=== PATIENT | female | born 1950 | race Caucasian/White ===

== ENCOUNTER 2022-04-03 08:06 | Outpatient (CLI) | payer BC, SELFPAY ==
[2022-04-03 15:08] LABS: Albumin* 4.7 g/dL (3.3-5.0)
[2022-04-03 15:10] LABS: Bilirubin Direct* 0.2 mg/dL (0.0-0.5); Bilirubin Total* 1.2 mg/dL (0.1-1.5); Cholesterol* 199 mg/dL (90-199)
[2022-04-03 15:11] LABS: Alanine Aminotransferase* 22 U/L (4-35); Alkaline Phosphatase* 85 U/L (40-150); Aspartate Amino Transferase* 32 U/L (12-35); HDL Cholesterol* 93 mg/dL (>=50); LDL Cholesterol Calculated 95 mg/dL (<100); Triglycerides* 53 mg/dL (40-149)
== END 2022-04-03 08:07 | disposition home or self-care (01) ==
PROVIDERS: PCP Family Medicine; Visit Provider Dermatology
DX: Z79.899 Other long term (current) drug therapy (principal); E78.5 Hyperlipidemia, unspecified; E55.9 Vitamin D deficiency, unspecified; I10 Essential (primary) hypertension
CPT/HCPCS: 80061; 80076

== ENCOUNTER 2022-04-10 14:52 | Outpatient (CLI) | payer BC, SELFPAY | END 2022-04-10 14:53 | disposition home or self-care (01) | LOC: RAD 14:53 | PROVIDERS: PCP Family Medicine; Visit Provider Internal Medicine Cardiovascular Disease | DX: I35.0 Nonrheumatic aortic (valve) stenosis (principal) | CPT/HCPCS: 93306 ==

== ENCOUNTER 2022-04-29 07:28 | Outpatient (CLI) | payer BC, SELFPAY ==
[2022-04-29 09:53] LABS: Albumin* 4.2 g/dL (3.3-5.0); Chloride* 105 mmol/L (96-114); Potassium* 4.2 mmol/L (3.6-5.1); Sodium* 139 mmol/L (135-149)
[2022-04-29 09:55] LABS: Cholesterol* 170 mg/dL (90-199)
[2022-04-29 09:56] LABS: Alanine Aminotransferase* 22 U/L (4-35); Alkaline Phosphatase* 71 U/L (40-150); Aspartate Amino Transferase* 31 U/L (12-35); Bilirubin Total* 1.1 mg/dL (0.1-1.5); Blood Urea Nitrogen* 25 mg/dL (7-30); Carbon Dioxide* 28 mmol/L (20-32); Creatinine* 0.8 mg/dL (0.5-1.5); Estimated Glomerular Filt Rate 78 ml/min; Glucose* 89 mg/dL (60-115); Total Protein* 7.4 g/dL (6.0-8.3); Triglycerides* 58 mg/dL (40-149)
[2022-04-29 09:57] LABS: Calcium* 9.5 mg/dL (8.4-10.6); HDL Cholesterol* 90 mg/dL (>=50); LDL Cholesterol Calculated 68 mg/dL (<100)
[2022-04-29 10:09] LABS: Vitamin D 25 Hydroxy* 43 ng/mL (30-80)
== END 2022-04-29 07:29 | disposition home or self-care (01) ==
PROVIDERS: PCP Family Medicine; Visit Provider Family Medicine
DX: Z00.00 Encounter for general adult medical examination without abnormal findings (principal); E55.9 Vitamin D deficiency, unspecified; E78.5 Hyperlipidemia, unspecified; I10 Essential (primary) hypertension; M85.80 Other specified disorders of bone density and structure, unspecified site
CPT/HCPCS: 80053; 80061; 82306

== ENCOUNTER 2022-07-09 14:43 | Outpatient (CLI) | payer BC, SELFPAY ==
--- NOTE | 2022-07-09 15:00 | CRLHL7_ITS ---
For Patients: As a result of the Cures Act, medical imaging exams and procedure reports are released immediately into your electronic medical record. You may view this report before your referring provider. If you have questions, please contact your health care provider. BILATERAL SCREENING MAMMOGRAM WITH COMPUTER-AIDED DETECTION AND TOMOSYNTHESIS TECHNIQUE: CC and MLO views were obtained. These mammographic images have been obtained using full-field digital technique. These mammographic images were interpreted with the benefit of computer-aided detection. Breast Tomosynthesis was used in this interpretation. COMPARISON FILM: 05/02/21, 04/02/20, 03/16/19. FINDINGS: There are scattered areas of fibroglandular density IMPRESSION: There is no radiographic evidence for malignancy. ASSESSMENT: BI-RADS Category 1: Negative RECOMMENDATION: Routine screening mammogram in 1 year. A lay language report of this examination will be provided to the patient. Víctor Reina M.D. Diagnostic Radiologist [email or web address] WILLAM/[email or web address] Transcribed: 5:43 p.claude levine/Dictated by: Víctor Reina MD @ 07/10/2022 12:53:00 PM (Electronically Signed)
== END 2022-07-09 14:44 | disposition home or self-care (01) ==
LOC: MAMMO 14:43
PROVIDERS: PCP Family Medicine; Visit Provider Family Medicine
DX: Z12.31 Encounter for screening mammogram for malignant neoplasm of breast (principal)
CPT/HCPCS: 77063; 77067

== ENCOUNTER 2023-04-07 15:03 | Outpatient (CLI) | payer OTHER, SELFPAY | END 2023-04-07 15:04 | disposition home or self-care (01) | PROVIDERS: PCP Family Medicine; Visit Provider Family Medicine | DX: L93.0 Discoid lupus erythematosus (principal); M79.10 Myalgia, unspecified site | CPT/HCPCS: 80053; 82550; 86039; 86140; 86431; 86812 ==

== ENCOUNTER 2023-05-04 07:35 | Outpatient (CLI) | payer OTHER, SELFPAY ==
--- OUTSIDE RECORDS SUMMARY | 2023-05-06 10:18 | XMS_ITS ---
Author Name Unknown Organization [facility] Address [address] [place] [address] Care Team Providers Care Stamp Presser Name Role Phone Unavailable Unavailable Unavailable Surgery Details Not on file Complications Check Surgery Details section. Procedure Estimated Blood Loss Check Surgery Details section. Procedure Findings Check Surgery Details section. Procedure Specimens Taken Check Surgery Details section.
--- OUTSIDE RECORDS SUMMARY | 2023-05-06 10:18 | XMS_ITS | Referral Summary ---
Author Name Unknown Organization [facility] Address [address] [place] [address] Care Team Providers Care International Marketing Specialist Name Role Phone Elsewhere, Pcp Primary Care Provider Unavailabl e Source Comments Patient records contain information from all sites at [facility]. For routine questions regarding patient records, call [phone] during business hours, M-F 8:00 AM - 5:00 PM Central Time. Record requests for emergency care only can be directed to [phone] at any time.[facility] Encounters Date Type Department Care Team Description 04/21/2023 Orders Only Division of Rheumatology in [place], [place] [address] [place] [address] Iwona Bermudez M.B.BElaineS. Polymyalgia Rheumatica (HCC) (Primary Dx) from Last 3 Months Immunizations Name Administration Dates Next Due PPSV23(Discontinued) 05/02/2003 Social History Tobacco Use Types Packs/Day Years Used Date Smoking Tobacco: Every Day Nutrition Answer Date Recorded Nutrition: EVOO Fat Source Unknown 05/31 Nutrition: Servings of Fruits/Vegetables per Day Not on file 05/31/2020 Dental Answer Date Recorded Dental: Regular Dentist Unknown 06/01/19 21 Sex and Gender Information Value Date Recorded Sex Assigned at Not on file Gender Identity Not on file Sexual Orientation Not on file Last Filed Vital Signs Vital Sign Reading Time Taken Comments Blood Pressure 109/70 06/20/2016 9:00 AM CDT Vital sign result from Clinical Notes. Pulse 67 06/20/2016 9:00 AM CDT Vi cruz sign result from Clinical Notes. Temperature - - Respiratory Rate - - Oxygen Saturation - - Inhaled Oxygen Concentration - - Weight - - Height - - Body Mass Index - - Plan of Treatment Upcoming Encounters Date Type Department Care Team (Latest Contact Info) Description 07/06/2023 10:30 AM CDT Clinical Communication Virtual Review in [place], [place] 200 [place] [address] 07/07/2023 8:30 AM CDT Comprehensive Visit Division of Rheumatology in [place], [place] [address] [place] [phone] Arthur Castorena M.D., Ph.D. [address] [place] [phone] 07/07/2023 10:15 AM CDT Appointment Department of Radiology, [facility] in [address] [phone] Iwona Bermudez M.B.B.S. [address] [place] [phone] 07/07/2023 10:30 AM CDT Appointment Department of Radiology, [facility] in [place], [place] [address] [place] [phone] Iwona Bermudez M.B.B.S. [address] [place] [phone] 07/07/2023 11:20 AM CDT Appointment Department of Laboratory Medicine and Pathology, [facility] in [address] [phone] Iwona Bermudez M.B.B.S. [address] [place] [phone] 07/10/2023 11:00 AM CDT Office Visit Division of Rheumatology in [address] [phone] Arthur Castorena M.D., Ph.D. [address] [place] [phone] Care Teams International Marketing Specialist Relationship Specialty Start Date End Date Elsewhere, Pcp PCP - General 04/18/19
--- OUTSIDE RECORDS SUMMARY | 2023-05-06 10:18 | XMS_ITS | Clinical Summary ---
Author Name Unknown Organization [facility] Address [address] [place] [address] Care Team Providers Care Chip Person Name Role Phone Elsewhere, Pcp Primary Care Provider Unavailabl e Source Comments Patient records contain information from all sites at [facility]. For routine questions regarding patient records, call [phone] during business hours, M-F 8:00 AM - 5:00 PM Central Time. Record requests for emergency care only can be directed to [phone] at any time.[facility] Encounters Date Type Department Care Team Description 04/21/2023 Orders Only Division of Rheumatology in [place], [place] [address] [place] [address] Iwona Bermudez M.B.BElaineS. Polymyalgia Rheumatica (HCC) (Primary [...] AM CDT Clinical Communication Virtual Review in [place], [place] 200 [place] [address] 07/07/2023 8:30 AM CDT Comprehensive Visit Division of Rheumatology in [place], [place] [address] [place] [phone] Arthur Castorena M.D., Ph.D. [address] [place] [phone] 07/07/2023 10:15 AM CDT Appointment Department of Radiology, [facility] in [address] [phone] Iwona Bermudez M.B.B.S. [address] [place] [phone] 07/07/2023 10:30 AM CDT Appointment Department of Radiology, [facility] in [place], [place] [address] [place] [phone] Iwona Bermudez M.B.B.S. [address] [place] [phone] 07/07/2023 11:20 AM CDT Appointment Department of Laboratory Medicine and Pathology, [facility] in [address] [phone] Iwona Bermudez M.B.B.S. [address] [place] [phone] 07/10/2023 11:00 AM CDT Office Visit Division of Rheumatology in [address] [phone] Arthur Castorena M.D., Ph.D. [address] [place] [phone] Health Maintenance Due Date Last Done Comments Bone Density Scan (Osteoporo sis Screen) 1948 CT Colonography 1950 Cologuard 1950 Colonoscopy 1950 Colorectal Cancer Screening 1950 FIT 1950 Fasting Glucose for Diabetes Screening 1950 Hepatitis C Screening 1950 Mammogram 1950 Depression Screening (Annual PHQ-2) 03/30/2023 Fall Risk Screen (Annual) 03/30/2023 DTaP,Tdap,and Td Vaccines (3 - Td or Tdap) 03/15/2030 03/15/2020, 08/31/2009 Pneumococcal vaccine (65+ years) Completed 03/04/2017, 01/09/2015, 05/02/2003 Zoster Vaccines Completed 10/12/2019, 02/27, 03/10/2019, Additional history exists Influenza Vaccine Completed 12/29/2022, , 03/13/2021, Additional history exists COVID-19 Vaccine Completed 01/16/2023, 09/2021, 10/21/2021, Additional history exists Care Teams Chip Person Relationship Specialty Start Date End Date Elsewhere, Pcp PCP - General 04/18/19
--- OUTSIDE RECORDS SUMMARY | 2023-05-06 10:18 | XMS_ITS | Encounter Summary ---
Author Name Unknown Organization [facility] Address [address] [place] [address] Care Team Providers Care Manager Instrumentation Name Role Phone Elsewhere, Pcp Primary Care Provider Unavailabl e Reason for Referral * Outpatient (Routine) - Authorized Specialty Diagnoses / Procedures Referred By Contac t Referred To Contact Diagnoses Polymyalgia Rheumatica (HCC) Procedures DX Foot Bilateral 3+ Views Iwona Bermudez M.B.B.S. [address] [place] [address] [facility] Referral ID Status Reason Start Date Expiration Date V isits Requested Visits Authorized [id number] Authorized 04/21/2023 04/20/2024 1 1 NCIAL RETIREMENT PLAN SPECIALIST * Outpatient (Routine) - Authorized Specialty Diagnoses / Procedures Referred By Contac t Referred To Contact Diagnoses Polymyalgia Rheumatica (HCC) Procedures DX Hand Bilateral 3+ Views Iwona Bermudez M.B.B.S. [address] [place] [address] [facility] Referral ID Status Reason Start Date Expiration Date V isits Requested Visits Authorized [id number] Authorized 04/21/2023 04/20/2024 1 1 NCIAL RETIREMENT PLAN SPECIALIST * Outpatient (Routine) - Authorized Specialty Diagnoses / Procedures Referred By Contac t Referred To Contact Diagnoses Polymyalgia Rheumatica (HCC) Procedures DX Sacroiliac Joints 3+ Views Iwona Bermudez M.B.B.S. [address] [place] [phone] [facility] Referral ID Status Reason Start Date Expiration Date V isits Requested Visits Authorized [id number] Authorized 04/21/2023 04/20/2024 1 1 NCIAL RETIREMENT PLAN SPECIALIST Encounter Details Date Type Department Care Team (Late st Contact Info) Description 04/21/2023 Orders Only Division of Rheumatology in [place], [place] [address] [place] [phone] Iwona Bermudez M.B.B.S. [address] [place] [phone] Polymyalgia Rheumatica (HCC) (Primary Dx) Social History Tobacco Use Types Packs/Day Years [...] on file Sexual Orientation Not on file documented as of this encounter Plan of Treatment Upcoming Encounters Date Type Department Care Team (Latest Contact Info) Description 07/06/2023 10:30 AM CDT Clinical Communication Virtual Review in [place], [place] 200 [place] [address] 07/07/2023 8:30 AM CDT Comprehensive Visit Division of Rheumatology in [place], [place] [address] [place] [phone] Arthur Castorena M.D., Ph.D. [address] [place] [phone] 07/07/2023 10:15 AM CDT Appointment Department of Radiology, [facility], in [place], [place] [address] [place] [phone] Iwona Bermudez M.B.B.S. 200 [place] [address] 07/07/2023 10:30 AM CDT Appointment Department of Radiology, [facility], in [place], [place] [address] [place] [phone] Iwona Bermudez M.B.B.S. [address] [place] [phone] 07/07/2023 11:20 AM CDT Appointment Department of Laboratory Medicine and Pathology, [facility] in [place], [place] [address] [place] [phone] Iwona Bermudez M.B.B.S. [address] [place] [phone] 07/10/2023 11:00 AM CDT Office Visit Division of Rheumatology in [place], [place] [address] [place] [phone] Arthur Castorena M.D., Ph.D. [address] [place] [phone] Scheduled Orders Name Type Priority Associated Diagnoses Order Schedule CBC with Differential, Blood Lab Routine Polymyalgia Rheumatica (HCC) Expected: 04/21/2023 (Approximate), Expires: 04/21/2024 Sedimentation Rate Lab Routine Polymyalgia Rheumatica (HCC) Expected: 04/21/2023 (Approximate), Expires: 04/21/2024 CRP (C-Reactive Protein) Lab Routine Polymyalgia Rheumatica (HCC) Expected: 04/21/2023 (Approximate), Expires: 04/21/2024 Comprehensive Metabolic Panel Lab Routine Polymyalgia Rheumatica (HCC) Expected: 04/21/2023 (Approximate), Expires: 07/20/2024 DX Sacroiliac Joints 3+ Views Imaging RAD - Routine (most inpatients and all outpatients) Polymyalgia Rheumatica (HCC) Expected: 04/21/2023 (Approximate), Expires: 07/20/2024 Rheumatoid Factor Lab Routine Polymyalgia Rheumatica (HCC) Expected: 04/21/2023 (Approximate), Expires: 04/21/2024 Cyclic Citrullinated Peptide Antibodies, IgG Lab Routine Polymyalgia Rheumatica (HCC) Expected: 04/21/2023 (Approximate), Expires: 04/21/2024 Antinuclear Antibodies, HEp-2 Substrate, IgG, Serum Lab Routine Polymyalgia Rheumatica (HCC) Expected: 04/21/2023 (Approximate), Expires: 04/21/2024 DX Hand Bilateral 3+ Views Imaging RAD - Routine (most inpatients and all outpatients) Polymyalgia Rheumatica (HCC) Expected: 04/21/2023 (Approximate), Expires: 07/20/2024 DX Foot Bilateral 3+ Views Imaging RAD - Routine (most inpatients and all outpatients) Polymyalgia Rheumatica (HCC) Expected: 04/21/2023 (Approximate), Expires: 07/20/2024 documented as of this encounter Visit Diagnoses Diagnosis Polymyalgia Rheumatica (HCC)- Primary documented in this encounter Care Teams Manager Instrumentation Relationship Specialty Start Date End Date Elsewhere, Pcp PCP - General 04/18/19 documented as of this encounter
== END 2023-05-04 07:36 | disposition home or self-care (01) ==
LOC: NFLDREF 05-06 10:11
PROVIDERS: PCP Family Medicine; Referring Provider Family Medicine; Visit Provider Family Medicine
DX: I10 Essential (primary) hypertension (principal); E78.5 Hyperlipidemia, unspecified; L93.0 Discoid lupus erythematosus; M35.3 Polymyalgia rheumatica; E55.9 Vitamin D deficiency, unspecified
CPT/HCPCS: 80053; 80061; 82306; 86140

== ENCOUNTER 2023-05-28 14:42 | Outpatient (CLI) | payer OTHER, SELFPAY ==
--- NOTE | 2023-05-28 15:00 | XR_ITS ---
Patient: DIA MCCLAIN Facility:?[facility] Patient ID:?[id number] Site Patient ID:?[id number]. Site :?[id number] Study:?DEXA-Bone Density SPINE/BOTH HIPS-05/28/2023 3:08:51 PM Ordering Physician:TONY Final Report: DXA BONE MINERAL DENSITY STUDY Reason for exam: Osteopenia. Current height (in): 67.0. Weight (lb): 145.0. Menopause age: Not provided. Ethnicity: White. 1. Have you had a previous hip or vertebral fracture? No. 2. Have you had any fractures during your adult life which did not result from significant trauma (e.g., auto accident)? No. 3. Did either of your parents have a hip fracture? No. 4. Do you smoke? Yes. 5. Have you ever taken Glucocorticoids? No. 6. Do you have rheumatoid arthritis? No. 7. Do you have secondary osteoporosis? No. 8. Do you drink 3 or more alcoholic drinks per day? No. 9. Are you being treated for osteoporosis? No. 10. Have you ever taken any of the following medications: Actonel, Evista, Fosamax, Miacalcin, Reclast, Boniva, Forteo, HRT (i.e. estrogen/hormone therapy), Protelos, Prolia, Vitamin D, Calcium, other ? please specify. ANSWER: Yes, Fosamax, vitamin D. 11. Do you have any of the following medical conditions: Anorexia or bulimia, asthma or emphysema, end stage renal disease, hyperparathyroidism, any seizure disorders, cancer, inflammatory bowel diseases, hysterectomy, other ? please specify. ANSWER: No. 12. What was your maximum height (inches)? 67.5. 13. Do you perform weight bearing exercise regularly? No. 14. Do you regularly consume dairy products? Yes. 15. Do you drink caffeinated beverages? Yes. 16. At what age did your period start? 11. 17. Are you premenopausal? No. 18. How many full term pregnancies have you had? 5. 19. Have you ever missed your period for more than 6 months in a row (not including or menopause)? No. TECHNIQUE: Bone mineral density study was performed using the [facility]. FINDINGS: The results of the study expressed as bone mineral density (BMD) are as follows: Lumbar spine L1 to L4: BMD: 0.798 g/cm2. T-score: -2.3. Z-score: 0.1. Neck Left: BMD: 0.702 g/cm2. T-score: -1.3. Z-score: 0.7. Right: BMD: 0.674 g/cm2. T-score: -1.6. Z-score: 0.5. Total Left: BMD: 0.795 g/cm2. T-score: -1.2. Z-score: 0.6. Right: BMD: 0.793 g/cm2. T-score: -1.2. Z-score: 0.5. IMPRESSION: Osteopenia. *Comparison exams done prior to 08/2019 were performed on different unit, [employer]. COMPARISON: Compared with scan of 03/12/2017, the bone mineral density has decreased by 4.8 percent at the spine and decreased by 12.3 percent at the hip. Compared with scan of 01/15/2015, the bone mineral density has decreased by 6.8 percent at the spine and decreased by 3.9 percent at the hip. FRAX 10-year Fracture Risk Major Osteoporotic Fracture: 11 percent Hip Fracture: 3.5 percent Reported Risk Factors: [place] () Neck BMD=0.674, BMI=22.7, smoking Víctor Reina M.D. Diagnostic Radiologist [email or web address] DSM/bhe / be/Dictated by: Víctor Reina MD @ 05/29/2023 9:20:00 AM Signed by:?Víctor eRina MD @05/30/2023 10:15:01 AM (Electronic Signature)
--- NOTE | 2023-05-28 16:00 | CT_ITS ---
Patient: DIA MCCLAIN Facility:?[facility] Patient ID:?[id number] Site Patient ID:?[id number]. Site :?[id number] Study:?CT-Chest LOW DOSE W/O-05/28/2023 3:11:57 PM Ordering Physician:TONY Final Report: INDICATION: Lung cancer screening. Significant smoking history. TECHNIQUE: Low-dose volumetric helical scanning of the thorax was performed without IV contrast material. Coronal and sagittal reconstructions were obtained. COMPARISON: None. FINDINGS: A noncalcified 4 mm right upper lobe nodule is demonstrated on image 28 of series 3 as well as a noncalcified 2 mm left upper lobe nodule on image 40. Several tiny calcified granulomas are also noted. Centrilobular emphysema is noted. There is no significant airway abnormality. No pleural effusion is demonstrated. There is no mediastinal or hilar lymph adenopathy. The heart size is normal. Calcified coronary arterial plaque is demonstrated. Images of the upper abdomen are unremarkable. IMPRESSION: 1. Noncalcified 4 mm right upper lobe nodule and 2 mm left upper lobe nodule. Lung-RADS CATEGORY 2: BENIGN APPEARANCE OR BEHAVIOR: Continue annual screening with low-dose chest CT in 12 months. 2. Centrilobular emphysema. 3. Coronary artery disease. Please note that all CT scans at this facility use dose modulation, iterative reconstruction, and/or weight-based dosing when appropriate to reduce radiation dose to as low as reasonably achievable. Dictated by Juan José Gamino MD @ 05/29/2023 9:02:24 AM Signed by:?Juan José Gamino MD @05/29/2023 9:02:24 AM (Electronic Signature)
== END 2023-05-28 14:43 | disposition home or self-care (01) ==
LOC: RAD 14:43
PROVIDERS: PCP Family Medicine; Visit Provider Family Medicine
DX: Z12.2 Encounter for screening for malignant neoplasm of respiratory organs (principal); R91.1 Solitary pulmonary nodule; Z87.891 Personal history of nicotine dependence; Z72.0 Tobacco use; M85.80 Other specified disorders of bone density and structure, unspecified site; M85.88 Other specified disorders of bone density and structure, other site
CPT/HCPCS: 71271; 77080

== ENCOUNTER 2023-06-10 07:38 | Outpatient (CLI) | payer OTHER, SELFPAY | END 2023-06-10 07:39 | disposition home or self-care (01) | LOC: NFLDREF 06-22 07:05 | PROVIDERS: PCP Family Medicine; Referring Provider Family Medicine; Visit Provider Family Medicine | DX: M35.3 Polymyalgia rheumatica (principal) | CPT/HCPCS: 86140 ==

== ENCOUNTER 2023-07-21 14:42 | Outpatient (CLI) | payer OTHER, SELFPAY ==
--- OUTSIDE RECORDS SUMMARY | 2023-07-21 14:45 | XMS_ITS | Encounter Summary ---
Author Name Unknown Organization [facility] Address [address] [place] [id number] Care Team Providers Care Video Coordinator Name Role Phone Elsewhere, Pcp Primary Care Provider Unavailabl e Encounter Details Date Type Department Care Team (Latest Contact Info) Description 07/07/2023 11:06 AM CDT - 07/07/2023 11:59 PM CDT Hospital Encounter Department of Laboratory Medicine and Pathology, [facility] in [place], [place] [address] [place] [address] Iwona Bermudez M.B.B.S. [address] [place] [address] Polymyalgia Rheumatica (HCC); Myalgia Discharge Disposition: Home or Self Care Social History Tobacco Use Types Packs/Day Years Used Date Smoking Tobacco: Every Day [facility] Utilities Answer Date Recorded In the past 12 months has [facility] [employer], gas, oil, or water [employer] threatened to shut off services in your home? No 07/07/2023 Exercise Vital Sign Answer Date Recorde d On average, how many days pe r week do you engage in moderate to strenuous exercise (like a brisk walk)? 2 days Minutes of Exercise per Session Not on file 07/07/2023 Hunger Vital Sign Answer Date Recorded Within the past 12 months, y ou worried that your food would run out before you got the money to buy more. Never true 07/07/19 24 Within the past 12 months, t he food you bought just didn't last and you didn't have money to get more. Never true 07/07/2023 PRAPARE - Transportation Answer Date Re corded In the past 12 months, has l ack of transportation kept you from medical appointments or from getting medications? No 11/2023 In the past 12 months, has l ack of transportation kept you from meetings, work, or from getting things needed for daily living? No 07/07/2023 Nutrition Answer Date Recorded Nutrition: EVOO Fat Source Unknown 07/06 On average, how many serving s of fruits and vegetables do you eat per day (serving size is equal to 1 cup or approximately the size of a tennis ball)? 0-2 07/07/2023 Dental Answer Date Recorded Dental: Regular Dentist Yes 07/07/19 Employment Answer Date Recorded Employment status Employed and actively working without restrictions 07/07/2023 Housing Stability Answer Date Recorded What is your living situation today? I have a [facility] place to live 07/07/2023 Sex and Gender Information Value Date Recorded Sex Assigned at Female 07/07/2023 7:47 AM CDT Gender Identity Female 07/07/2023 7:47 AM CDT Sexual Orientation Straight 07/07/2023 7: 47 AM CDT documented as of this encounter Medications at Time of Discharge Medication Sig Dispensed Refills Start Date End Date alendronate (FOSAMAX) 70 mg tablet Take 1 tablet by mouth once a week. 06/20/2016 calcium carbonate-vitamin D3 (Calcium 600 with Vitamin D3) 600 mg-10 mcg (400 unit) tablet,chewable Chew 1 tablet daily. cholecalciferol, vitamin D3, (cholecalciferol) 25 mcg (1,000 Unit) tablet Take 50 mcg by mouth daily. hydroCHLOROthiazide (HYDRODIURIL) 25 mg tablet Take 1 tablet by mouth daily. 06/20/2016 hydroxychloroquine (PLAQUENIL) 200 mg tablet Take 200 mg by mouth Titrated. lisinopriL (PRINIVIL,ZESTRIL) 30 mg tablet Take 1 tablet by mouth daily. 01/02/2011 simvastatin (ZOCOR) 10 mg tablet Take 2 tablets by mouth at bedtime. 06/20/2016 predniSONE (DELTASONE) 10 mg tablet TAKE ONE TABLET BY MOUTH EVERY DAY ALONG WITH 1-5MG TABLET 06/12/2023 07/15/2023 predniSONE (DELTASONE) 5 mg tablet TAKE ONE TABLET BY MOUTH EVERY DAY ALONG WITH 1-10MG TABLET 06/12/2023 07/15/2023 documented as of this encounter Plan of Treatment Upcoming Encounters Date Type Department Care Team (Late st Contact Info) Description 08/27/2023 2:00 PM CDT Comprehensive Visit Department of Dermatology in [place], [place] [address] [place] [address] Digna Le M.D. [address] [place] [address] documented as of this encounter Procedures Procedure Name Priority Date/Time Associated Diagnosis Comments HIV-1/-2 AG AND AB SCREEN, PLASMA Routine 07/07/2023 11:22 AM CDT Myalgia ANTINUCLEAR AB, HEP-2, SUBSTRATE, S Routine 07/07/2023 11:22 AM CDT Polymyalgia Rheumatica (HCC) QUANTIFERON-TB GOLD PLUS, B Routine 07/07/2023 11:22 AM CDT Myalgia THYROID FUNCTION CASCADE, S Routine 07/07/2023 11:22 AM CDT Myalgia HEPATITIS BE AG AND AB Routine 11:22 AM CDT Myalgia AB TO EXTRACTABLE NUCLEAR AG EVAL, S Routine 07/07/2023 11:22 AM CDT Myalgia HCV AB W/REFLEX TO HCV PCR, S Routine 07/07/2023 11:22 AM CDT Myalgia CYCLIC CITRULLINATED PEPTIDE ABS, IGG, S Routine 07/07/2023 11:22 AM CDT Polymyalgia Rheumatica (HCC) ALDOLASE, S Routine 07/07/2023 11:22 AM CDT Myalgia HBC TOTAL AB, SERUM Routine 07/07/2023 1 1:22 AM CDT Myalgia HBS ANTIBODY, SERUM Routine 07/07/2023 1 1:22 AM CDT Myalgia HEPATITIS B SURFACE ANTIGEN Routine 07/07/2023 11:22 AM CDT Myalgia SEDIMENTATION RATE, B Routine 07/07/2023 11:22 AM CDT Polymyalgia Rheumatica (HCC) CBC WITH DIFFERENTIAL, B Routine 07/07/2023 11:22 AM CDT Polymyalgia Rheumatica (HCC) RHEUMATOID FACTOR, S/P Routine 11:22 AM CDT Polymyalgia Rheumatica (HCC) COMPL C3, S Routine 07/07/2023 11:22 AM CDT Myalgia COMPLEMENT C4, S Routine 07/07/2023 11:2 2 AM CDT Myalgia C-REACTIVE PROTEIN (CRP), S/P Routine 07/07/2023 11:22 AM CDT Polymyalgia Rheumatica (HCC) LACTATE DEHYDROGENASE (LD), S Routine 07/07/2023 11:22 AM CDT Myalgia CREATINE KINASE (CK), S Routine 07/07/2023 11:22 AM CDT Myalgia COMPREHENSIVE METABOLIC PANEL, S/P Routine 07/07/2023 11:22 AM CDT Polymyalgia Rheumatica (HCC) documented in this encounter Results * QuantiFERON-Tb Gold Plus, Blood (07/07/2023 11:22 AM CDT) [facility] QuantiFERON-TB Gold Plus Result Negative Negative 07/08/2023 11:19 AM CDT [facility] Comment: No interferon-gamma response to M. tuberculosis antigens was detected. Latent infection with M. tuberculosis is unlikely. A single negative result does not exclude infection with M. tuberculosis. In patients at high risk for M.tuberculosis infection, a second test should be considered in accordance with the 2017 ATS/IDSA/CDC Clinical Practice Guidelines for Diagnosis of Tuberculosis in Adults and Children [Lewinsohn DM et. al. Clin. Infect. Dis. 2017;64(2):111-115]. The reference range for the 'TB1 Ag minus Nil Result' and 'TB2 Ag minus Nil Result' is an Interferon-gamma level <0.35 IU/mL. TB1 Ag minus Nil Result 0.00 IU/mL 07/08/2023 11:19 AM CDT [facility] TB2 Ag minus Nil Result 0.00 IU/mL 07/08/2023 11:19 AM CDT [facility] Mitogen minus Nil Result 10.00 IU/mL 07/08/2023 11:19 AM CDT [facility] Nil Result 0.00 IU/mL 07/08/2023 11:19 AM CDT [facility] Blood (Blood, Venous) 07/07/2023 11:22 AM CDT 07/07/2023 2:00 PM CDT Narrative [facility] - 07/08/2023 11:19 AM CDT Specimen Information: Specimen ID: [id number] Specimen Type: Blood Specimen Collection Start Date: 07/07/2023 11:22 AM Specimen Received Date: 07/07/2023 ??2:00 PM Specimen ID: [id number] Specimen Type: Blood Specimen Collection Start Date: 07/07/2023 11:22 AM Specimen Received Date: 07/07/2023 ??2:00 PM Specimen ID: [id number] Specimen Type: Blood Specimen Collection Start Date: 07/07/2023 11:22 AM Specimen Received Date: 07/07/2023 ??2:00 PM Specimen ID: [id number] Specimen Type: Blood Specimen Collection Start Date: 07/07/2023 11:22 AM Specimen Received Date: 07/07/2023 ??2:00 PM Arthur Castorena M.D., Ph.D. LAB MICROBIOLOG Y - BLOOD ORDERABLES Performing Organization Address [facility] Co de Phone Number [facility] [address] [place] [address] [facility] [address] [place] [address] * HCV Ab w/Reflex to HCV PCR, Serum (07/07/2023 11:22 AM CDT) HCV Ab, S Negative Negative 07/07/2023 9:20 PM CDT [facility] Comment:Ereaqj-lj-uiwasj rat io is <1.00. Blood (Blood, Venous) 07/07/2023 11:22 AM CDT 07/07/2023 5:00 PM CDT Arthur Castorena M.D., Ph.D. LAB MICROBIOLOG Y - BLOOD ORDERABLES Performing Organization Address [facility] Co de Phone Number [facility] [address] [place] [address] [facility] [address] [place] [address] * HBc Total Ab, Serum (07/07/2023 11:22 AM CDT) HBc Total Ab, S Negative Negative 07/07/2023 9:25 PM CDT [facility] Blood (Blood, Venous) 07/07/2023 11:22 AM CDT 07/07/2023 5:00 PM CDT Arthur Castorena M.D., Ph.D. LAB MICROBIOLOG Y - BLOOD ORDERABLES Performing Organization Address City/[facility]/ZIP Co de Phone Number [facility] [address] [place] [address] [facility] [address] [place] [address] * Hepatitis B Surface Antigen (07/07/2023 11:22 AM CDT) HBs Antigen, S Negative Negative 07/07/2023 9:02 PM CDT [facility] Blood (Blood, Venous) 07/07/2023 11:22 AM CDT 07/07/2023 5:00 PM CDT Arthur Castorena M.D., Ph.D. LAB MICROBIOLOG Y - BLOOD ORDERABLES Performing Organization Address [facility] Co de Phone Number [facility] [address] [place] [address] [facility] [address] [place] [address] * Hepatitis Be Ag and Ab (07/07/2023 11:22 AM CDT) Hepatitis Be Ag, S Negative Negative 07/07/2023 9:07 PM CDT [facility] HBe Antibody, S Negative Negative 07/07/2023 9:23 PM CDT [facility] Blood (Blood, Venous) 07/07/2023 11:22 AM CDT 07/07/2023 5:00 PM CDT Arthur Castorena M.D., Ph.D. LAB MICROBIOLOG Y - BLOOD ORDERABLES Performing Organization Address [facility] Co de Phone Number [facility] [address] [place] [address] [place] [address] * HBs Antibody, Serum (07/07/2023 11:22 AM CDT) HBs Antibody, S Negative 07/07/2023 9:24 PM CDT [facility] Comment: Patient is presumed to be not immune to infection with HBV. ----REFERENCE VALUE---- Unvaccinated: Negative Vaccinated: Positive HBs Antibody, Quantitative, S <5.0 mIU/mL 07/07/2023 9:24 PM CDT [facility] Comment: ----REFERENCE VALUE---- Unvaccinated: <5.0 Vaccinated: >=12.0 Blood (Blood, Venous) 07/07/2023 11:22 AM CDT 07/07/2023 5:00 PM CDT Arthur Castorena M.D., Ph.D. LAB MICROBIOLOG Y - BLOOD ORDERABLES Performing Organization Address City/[facility]/ZIP Co de Phone Number [facility] [address] [place] [address] [facility] [address] [place] [address] * HIV-1/-2 Ag and Ab Screen, Plasma (07/07/2023 11:22 AM CDT) Pathologist [facility] HIV-1/-2 Ag and Ab Screen, P Negative Negative 07/07/2023 4:24 PM CDT [facility] Comment: Negative result does not rule out HIV infection. If exposure to HIV infection occurred <14 days ago, contact the laboratory to request addition of HIV-1/HIV-2 RNA detection, Plasma (HIP12). Blood (Blood, Venous) 07/07/2023 11:22 AM CDT 07/07/2023 3:33 PM CDT Arthur Castorena M.D., Ph.D. LAB MICROBIOLOG Y - BLOOD ORDERABLES Performing Organization Address [facility] Co de Phone Number [facility] [address] [place] [address] [facility] [address] [place] [address] * LD (Lactate Dehydrogenase) (07/07/2023 11:22 AM CDT) Pathologist [facility] Lactate Dehydrogenase (LD), S 215 122 - 222 U/L 07/07/2023 12:20 PM CDT DTL Blood (Blood, Venous) 07/07/2023 11:22 AM CDT 07/07/2023 11:53 AM CDT Arthur Castorena M.D., Ph.D. LAB BLOOD NON A DD-ON Performing Organization Address City/[facility] Co de Phone Number [facility] [address] [place] [address], [place] DTL [facility] [address] [place] [address] * Antibody to Extractable Nuclear Antigen Evaluation (07/07/2023 11:22 AM CDT) SS-A/Ro Ab, IgG, S 0.2 <1.0 (Negative) U 07/07/2023 5:10 PM CDT [facility] SS-B/La Ab, IgG, S <0.2 <1.0 (Negative) U 07/07/2023 5:10 PM CDT [facility] Sm Ab, IgG, S <0.2 <1.0 (Negative) U 07/07/2023 5:10 PM CDT [facility] DRUPAL DEVELOPER Ab, IgG, S 0.5 <1.0 (Negative) U 07/07/2023 5:10 PM CDT [facility] Scl 70 Ab, IgG, S <0.2 <1.0 (Negative) U 07/07/2023 5:10 PM CDT [facility] Karishma 1 Ab, IgG, S <0.2 <1.0 (Negative) U 07/07/2023 5:10 PM CDT [facility] Blood (Blood, Venous) 07/07/2023 11:22 AM CDT 07/07/2023 4:06 PM CDT Arthur Castorena M.D., Ph.D. LAB BLOOD ADD-O N [facility] [address] [address] [facility] [address] [place] [address] * Complement C4 (07/07/2023 11:22 AM CDT) Complement C4, S 25 14 - 40 mg/dL 07/07/2023 4:29 PM CDT [facility] Blood (Blood, Venous) 07/07/2023 11:22 AM CDT 07/07/2023 3:29 PM CDT Arthur Castorena M.D., Ph.D. LAB BLOOD ADD-O N [facility] [address] [address] [facility] [address] [place] [address] * Complement C3 (07/07/2023 11:22 AM CDT) Complement C3, S 112 75 - 175 mg/dL 07/07/2023 4:29 PM CDT [facility] Blood (Blood, Venous) 07/07/2023 11:22 AM CDT 07/07/2023 3:29 PM CDT Arthur Castorena M.D., Ph.D. LAB BLOOD ADD-O N [facility] [address] [place] [address] [facility] [address] [place] [address] * Thyroid Function [place] (07/07/2023 11:22 AM CDT) TSH, Sensitive 1.7 0.3 - 4.2 mIU/L 07/07/2023 12:20 PM CDT DT Blood (Blood, Venous) 07/07/2023 11:22 AM CDT 07/07/2023 11:53 AM CDT Arthur Castorena M.D., Ph.D. LAB BLOOD ADD-O N Performing Organization Address City/[facility]/ZIP Co de Phone Number [facility] [address] [place] [address], [facility] [address] [place] [address] * Aldolase (07/07/2023 11:22 AM CDT) Aldolase, S 5.5 <7.7 U/L 07/07/2023 2: 09 PM CDT DT Blood (Blood, Venous) 07/07/2023 11:22 AM CDT 07/07/2023 1:30 PM CDT Arthur Castorena M.D., Ph.D. LAB BLOOD NON A DD-ON Performing Organization Address City/[facility]/ZIP Co de Phone Number [facility] [address] [place] [address] * CK (Creatine Kinase) (07/07/2023 11:22 AM CDT) Creatine Kinase (CK), S 48 26 - 192 U/L 07/07/2023 12:20 PM CDT [facility] Blood (Blood, Venous) 07/07/2023 11:22 AM CDT 07/07/2023 11:53 AM CDT Arthur Castorena M.D., Ph.D. LAB BLOOD ADD-O N Performing Organization Address [facility] Co de Phone Number [facility] [address] [place] [address] * (ABNORMAL) Antinuclear Antibodies, HEp-2 Substrate, IgG, Serum (07/07/2023 11:22 AM CDT) Antinuclear Ab, HEp-2 Substrate, S Positive 1:160(A) <1:80 (Negativ e) 07/07/2023 8:57 PM CDT [facility] Comment: ----ADDITIONAL INFORMATION---- Method: Immunofluorescence using HEp-2 cellular substrate. MALLIKA Titer: 1:160 07/07/2023 8:57 PM CDT [facility] MALLIKA Pattern: Speckled 07/07/2023 8:57 PM CDT [facility] Blood (Blood, Venous) 07/07/2023 11:22 AM CDT 07/07/2023 3:42 PM CDT Iwona Moeller. LAB BLOOD ADD-ON Performing Organization Address City/[facility]/ZIP Co de Phone Number [facility] [address] [place] [address] [facility] [address] [place] [address] * Cyclic Citrullinated Peptide Antibodies, IgG (07/07/2023 11:22 AM CDT) [facility] Cyclic Citrullinated Peptide Ab, S <15.6 <20.0 (Negative) U 07/07/2023 6:37 PM CDT [facility] Blood (Blood, Venous) 07/07/2023 11:22 AM CDT 07/07/2023 3:37 PM CDT Iwona CowanSElaine LAB BLOOD ADD-ON Performing Organization Address City/[facility]/ZIP Co de Phone Number [facility] [address] [place] [address] [facility] [address] [place] [address] * Rheumatoid Factor (07/07/2023 11:22 AM CDT) [facility] Rheumatoid Factor, S <15 <15 IU/mL 07/08/2023 10:38 AM CDT [facility] Blood (Blood, Venous) 07/07/2023 11:22 AM CDT 07/08/2023 9:20 AM CDT Iwona CowanSElaine LAB BLOOD ADD-ON [facility] [address] [place] [address] [facility] [address] [place] [address] * (ABNORMAL) Comprehensive Metabolic Panel (07/07/2023 11:22 AM CDT) [facility] Potassium, S 3.7 3.6 - 5.2 mmol/L 07/07/2023 12:20 PM CDT DTL Sodium, S 143 135 - 145 mmol/L 07/07/2023 12:20 PM CDT DTL Chloride, S 103 98 - 107 mmol/L 07/07/2023 12:20 PM CDT DTL Bicarbonate, S 30(H) 22 - 29 mmol/L 07/07/2023 12:20 PM CDT DTL Anion Gap 10 7 - 15 07/07/2023 12:20 PM CDT DTL BUN (Blood Urea Nitrogen), S 17 6 - 21 mg/dL 07/07/2023 12:20 PM CDT DTL Creatinine 0.89 0.59 - 1.04 mg/dL 07/07/2023 12:20 PM CDT DTL Estimated GFR (eGFR) 68 >=60 mL/min/BS A 07/07/2023 12:20 PM CDT DTL Comment: Estimated GFR calculated using the 2020 CKD_EPI creatinine equation. Calcium, Total, S 10.2 8.8 - 10.2 mg/dL 07/07/2023 12:20 PM CDT DTL Glucose, S 100 70 - 140 mg/dL 07/07/2023 12:20 PM CDT DTL Protein, Total, S 6.6 6.3 - 7.9 g/dL 07/07/2023 12:20 PM CDT DTL Albumin, S 4.5 3.5 - 5.0 g/dL 07/07/2023 12:20 PM CDT DTL Aspartate Aminotransferase (AST), S 23 8 - 43 U/L 07/07/2023 12:20 PM CDT DTL Alkaline Phosphatase, S 55 35 - 104 U/L 07/07/2023 12:20 PM CDT DTL Alanine Aminotransferase (ALT), S 25 7 - 45 U/L 07/07/2023 12:20 PM CDT DTL Bilirubin, Total, S 1.1 0.0 - 1.2 mg/dL 07/07/2023 12:20 PM CDT DTL Blood (Blood, Venous) 07/07/2023 11:22 AM CDT 07/07/2023 11:53 AM CDT Iwona Garza LAB BLOOD ADD-ON [facility] [address] [place] [address], [facility] [address] [place] [address] * CRP (C-Reactive Protein) (07/07/2023 11:22 AM CDT) Pathologist [facility] C-Reactive Protein (CRP), S <3.0 <5.0 mg/L 07/07/2023 12:20 PM CDT DTL Blood (Blood, Venous) 07/07/2023 11:22 AM CDT 07/07/2023 11:53 AM CDT Iwona Chang.S. LAB BLOOD ADD-ON Performing Organization Address City/[facility]/ZIP Co de Phone Number [facility] [address] [place] [address] * Sedimentation Rate (07/07/2023 11:22 AM CDT) [facility] Sedimentation Rate, B 9 3 - 28 mm/h 07/07/2023 1:01 PM CDT DTL Blood (Blood, Venous) 07/07/2023 11:22 AM CDT 07/07/2023 11:50 AM CDT Iwona DavidsonB.S. LAB BLOOD ADD-ON Performing Organization Address [facility] Co de Phone Number [facility] [address] [place] [address], [place] [address] * (ABNORMAL) CBC with Differential, Blood (07/07/2023 11:22 AM CDT) [facility] Hemoglobin 15.7(H) 11.6 - 15.0 g/dL 07/07/2023 12:15 PM CDT DTL Hematocrit 47.0(H) 35.5 - 44.9 % 07/07/2023 12:15 PM CDT DTL Erythrocytes 4.95 3.92 - 5.13 x10(12)/L 07/07/2023 12:15 PM CDT DTL MCV 94.9 78.2 - 97.9 fL 07/07/2023 12:15 PM CDT DTL RBC Distrib Width 16.5(H) 12.2 - 16.1 % 07/07/2023 12:15 PM CDT DTL Platelet Count 211 157 - 371 x10(9)/L 07/07/2023 12:15 PM CDT DTL Leukocytes 11.8(H) 3.4 - 9.6 x10(9)/L 07/07/2023 12:15 PM CDT DTL Neutrophils 8.21(H) 1.56 - 6.45 x10(9)/L 07/07/2023 12:15 PM CDT [facility] Lymphocytes 2.68 0.95 - 3.07 x10(9)/L 07/07/2023 12:15 PM CDT DTL Monocytes 0.80 0.26 - 0.81 x10(9)/L 07/07/2023 12:15 PM CDT DTL Eosinophils 0.03 0.03 - 0.48 x10(9)/L 07/07/2023 12:15 PM CDT DTL Basophils 0.03 0.01 - 0.08 x10(9)/L 07/07/2023 12:15 PM CDT DTL Blood (Blood, Venous) 07/07/2023 11:22 AM CDT 07/07/2023 11:50 AM CDT Iwona Garza LAB BLOOD ADD-ON [facility] [address] [place] [address], [facility] DTL [facility] [address] [place] [address] DHPM [facility] [address] [place] [address] documented in this encounter Visit Diagnoses Diagnosis Polymyalgia Rheumatica (HCC) Myalgia documented in this encounter Care Teams Video Coordinator Relationship Specialty Start Date End Date Elsewhere, Pcp PCP - General 04/18/19 documented as of this encounter
--- OUTSIDE RECORDS SUMMARY | 2023-07-21 14:45 | XMS_ITS | Clinical Summary ---
Author Name Unknown Organization [facility] Address [address] [place] [address] Care Team Providers Care Computer Equipment Installer Name Role Phone Elsewhere, Pcp Primary Care Provider Unavailabl e Source Comments Patient records contain information from all sites at [facility]. For routine questions regarding patient records, call [phone] during business hours, M-F 8:00 AM - 5:00 PM Central Time. Record requests for emergency care only can be directed to [phone] at any time.[facility] Medications Medication Sig Dispensed Refills Start Date End Date Status alendronate (FOSAMAX) 70 mg tablet Take 1 tablet by mouth once a week. 06/20/2016 Active hydroCHLOROthiazi de (HYDRODIURIL) 25 mg tablet Take 1 tablet by mouth daily. 06/20/2016 Active lisinopriL (PRINIVIL,ZESTRIL ) 30 mg tablet Take 1 tablet by mouth daily. 01/02/2011 Active simvastatin (ZOCOR) 10 mg tablet Take 2 tablets by mouth at bedtime. 06/20/2016 Active calcium carbonate-vitamin D3 (Calcium 600 with Vitamin D3) 600 mg-10 mcg (400 unit) tablet,chewable Chew 1 tablet daily. Active cholecalciferol, vitamin D3, (cholecalciferol) 25 mcg (1,000 Unit) tablet Take 50 mcg by mouth daily. Active hydroxychloroquin e (PLAQUENIL) 200 mg tablet Take 200 mg by mouth Titrated. Active predniSONE (DELTASONE) 5 mg tabletIndications :Polymyalgia Rheumatica (HCC) Take 2.5 tablets (12.5 mg total) by mouth daily for 14 days, THEN 2 tablets (10 mg total) daily for 14 days. 63 tablet 07/15/2023 08/12/2023 Active predniSONE (DELTASONE) 1 mg tabletIndications :Polymyalgia Rheumatica (HCC) Take 9 tablets (9 mg total) by mouth daily for 21 days, THEN 8 tablets (8 mg total) daily for 21 days, THEN 7 tablets (7 mg total) daily for 21 days, THEN 6 tablets (6 mg total) daily for 21 days, THEN 5 tablets (5 mg total) daily for 21 days, THEN 4 tablets (4 mg total) daily for 21 days, THEN 3 tablets (3 mg total) daily for 21 days, THEN 2 tablets (2 mg total) daily for 21 days, THEN 1 tablet (1 mg total) daily for 21 days. 945 tablet 07/15/2023 01/20/2024 Active predniSONE (DELTASONE) 10 mg tablet TAKE ONE TABLET BY MOUTH EVERY DAY ALONG WITH 1-5MG TABLET 06/12/2023 07/15/2023 Discontinued predniSONE (DELTASONE) 5 mg tablet TAKE ONE TABLET BY MOUTH EVERY DAY ALONG WITH 1-10MG TABLET 06/12/2023 07/15/2023 Discontinued Active Problems No known active problems Encounters Date Type Department Care Team Description 07/15/2023 Orders Only Division of Rheumatology in [place], [place] [address] [place] [address] Arthur Castorena M.D., Ph.D. Polymyalgia Rheumatica (HCC) (Primary Dx) 07/15/2023 Clinical Communication Division of Rheumatology in [place], [place] [address] [place] [address] Arthur Castorena M.D., Ph.D. Med Question 07/10/2023 11:00 AM CDT Office Visit Division of Rheumatology in [place], [place] [address] [place] [address] Arthur Castorena M.D., Ph.D. Polymyalgia Rheumatica (HCC) (Primary Dx); Lupus Discoid Erythematosus; Rash; High Risk Medication; Myalgia 07/07/2023 11:06 AM CDT - 07/07/2023 11:59 PM CDT Hospital Encounter Department of Laboratory Medicine and Pathology, [facility] in [place], [place] [address] [place] [address] Iwona Bermudez M.B.B.S. Polymyalgia Rheumatica (HCC); Myalgia Discharge Disposition: Home or Self Care 07/07/2023 9:58 AM CDT - 07/07/2023 11:05 AM CDT Hospital Encounter Department of Radiology, [facility], in [place], [place] [address] [place] [phone] Iwona Bermudez M.B.B.S. Polymyalgia Rheumatica (HCC) Discharge Disposition: Home or Self Care 07/07/2023 9:58 AM CDT - 07/07/2023 11:05 AM CDT Hospital Encounter Department of Radiology, [facility], in [place], [place] [address] [place] [phone] Iwona Bermudez M.B.B.S. Polymyalgia Rheumatica (HCC) Discharge Disposition: Home or Self Care 07/07/2023 8:30 AM CDT Comprehensive Visit Division of Rheumatology in [place], [place] [address] [place] [phone] Arthur Castorena M.D., Ph.D. Myalgia (Primary Dx); Lupus Discoid Erythematosus; Rash; High Risk Medication 04/21/2023 Orders Only Division of Rheumatology in [place], [place] [address] [place] [phone] Iwona Bermudez M.B.B.S. Polymyalgia Rheumatica (HCC) (Primary Dx) from Last 3 Months Immunizations Name Administration Dates Next Due PPSV23(Discontinued) 05/02/2003 Social History Tobacco Use Types Packs/Day Years Used Date Smoking Tobacco: Every Day [facility] Utilities Answer Date Recorded In the past 12 months has [employer], gas, oil, or water [employer] threatened to shut off services in your [...] your living situation today? [facility] 07/07/2023 Sex and Gender Information Value Date Recorded Sex Assigned at Female 07/07/2023 7:47 AM CDT Gender Identity Female 07/07/2023 7:47 AM CDT Sexual Orientation Straight 07/07/2023 7: 47 AM CDT Last Filed Vital Signs Vital Sign Reading Time Taken Comments Blood Pressure 150/77 07/07/2023 8:29 AM CDT Pulse 59 07/07/2023 8:29 AM CDT Temperature 36.3 ??C (97.3 ??F) 07/07/2023 8:29 AM CD T Respiratory Rate - - Oxygen Saturation - - Inhaled Oxygen Concentration - - Weight 69.5 kg (153 lb 3.5 oz) 07/07/2023 8:29 A M CDT Height 168.5 cm (5' 6.34) 07/07/2023 8:29 AM CD T Body Mass Index 24.48 07/07/2023 8:29 AM CDT Plan of Treatment Upcoming Encounters Date Type Department Care Team (Late st Contact Info) Description 08/27/2023 2:00 PM CDT Comprehensive Visit Department of Dermatology in [place], [place] [address] [place] [address] Digna Le M.D. [address] [place] [address] Health Maintenance Due Date Last Done Comments Bone Density Scan (Osteoporo sis Screen) 1948 CT Colonography 1948 Cologuard 1948 Colonoscopy 1948 Colorectal Cancer Screening 1948 FIT 1948 Mammogram 1948 Tobacco Cessation counseling 1948 COVID-19 Vaccine (2022- 4 season) 2023 01/16/2023, 02/03/2022, 10/21/2021, Additional history exists Depression Screening (Annual PHQ-2) 03/30/2023 Fall Risk Screen (Annual) 03/30/2023 Creatinine Level (Kidney Fun ction Test) 07/06/2024 07/07/2023 Potassium Level 07/06/2024 07/07/2023 Sodium Level 07/06/2024 07/07/2023 Fasting Glucose for Diabetes Screening 07/06/2026 07/07/2023 DTaP,Tdap,and Td Vaccines (3 - Td or Tdap) 03/15/2030 03/15/2020, 08/31/2009 Pneumococcal vaccine (65+ years) Completed 03/04/2017, 01/09/2015, 05/02/2003 Zoster Vaccines Completed 10/12/2019, 02/27, 03/10/2019, Additional history exists Influenza Vaccine Completed 12/29/2022, , 03/13/2021, Additional history exists Procedures Procedure Name Priority Date/Time Associated Diagnosis Comments LACTATE DEHYDROGENASE (LD), S Routine 07/07/2023 11:22 AM CDT Myalgia AB TO EXTRACTABLE NUCLEAR AG EVAL, S Routine 07/07/2023 11:22 AM CDT Myalgia COMPLEMENT C4, S Routine 07/07/2023 11:2 2 AM CDT Myalgia COMPL C3, S Routine 07/07/2023 11:22 AM CDT Myalgia THYROID FUNCTION CASCADE, S Routine 07/07/2023 11:22 AM CDT Myalgia ALDOLASE, S Routine 07/07/2023 11:22 AM CDT Myalgia CREATINE KINASE (CK), S Routine 07/07/2023 11:22 AM CDT Myalgia ANTINUCLEAR AB, HEP-2, SUBSTRATE, S Routine 07/07/2023 11:22 AM CDT Polymyalgia Rheumatica (HCC) CYCLIC CITRULLINATED PEPTIDE ABS, IGG, S Routine 07/07/2023 11:22 AM CDT Polymyalgia Rheumatica (HCC) RHEUMATOID FACTOR, S/P Routine 07/07/2023 11:22 AM CDT Polymyalgia Rheumatica (HCC) COMPREHENSIVE METABOLIC PANEL, S/P Routine 07/07/2023 11:22 AM CDT Polymyalgia Rheumatica (HCC) C-REACTIVE PROTEIN (CRP), S/P Routine 07/07/2023 11:22 AM CDT Polymyalgia Rheumatica (HCC) SEDIMENTATION RATE, B Routine 07/07/2023 11:22 AM CDT Polymyalgia Rheumatica (HCC) CBC WITH DIFFERENTIAL, B Routine 07/07/2023 11:22 AM CDT Polymyalgia Rheumatica (HCC) QUANTIFERON-TB GOLD PLUS, B Routine 07/07/2023 11:22 AM CDT Myalgia HCV AB W/REFLEX TO HCV PCR, S Routine 07/07/2023 11:22 AM CDT Myalgia HBC TOTAL AB, SERUM Routine 07/07/2023 1 1:22 AM CDT Myalgia HEPATITIS B SURFACE ANTIGEN Routine 07/07/2023 11:22 AM CDT Myalgia HEPATITIS BE AG AND AB Routine 07/07/2023 11:22 AM CDT Myalgia HBS ANTIBODY, SERUM Routine 07/07/2023 1 1:22 AM CDT Myalgia HIV-1/-2 AG AND AB SCREEN, PLASMA Routine 07/07/2023 11:22 AM CDT Myalgia DX HAND BILATERAL 3+ VIEWS RAD - Routine (most inpatients and all outpatients) 07/07/2023 10:29 AM CDT Polymyalgia Rheumatica (HCC) DX FOOT BILATERAL 3+ VIEWS RAD - Routine (most inpatients and all outpatients) 07/07/2023 10:27 AM CDT Polymyalgia Rheumatica (HCC) DX SACROILIAC JOINTS 3+ VIEWS RAD - Routine (most inpatients and all outpatients) 07/07/2023 10:27 AM CDT Polymyalgia Rheumatica (HCC) from Last 3 Months Results * HIV-1/-2 Ag and Ab Screen, Plasma (07/07/2023 11:22 AM CDT) HIV-1/-2 Ag and Ab Screen, P Negative Negative 07/07/2023 4:24 PM CDT [facility] Comment: Negative result does not rule out HIV infection. If exposure to HIV infection occurred <14 days ago, contact the laboratory to request addition of HIV-1/HIV-2 RNA detection, Plasma (HIP12). Blood (Blood, Venous) 07/07/2023 11:22 AM CDT 07/07/2023 3:33 PM CDT Arthur Castorena M.D., Ph.D. LAB MICROBIOLOG Y - BLOOD ORDERABLES [facility] [address] [place] [id number] [facility] [address] [place] [address] * (ABNORMAL) Antinuclear Antibodies, HEp-2 Substrate, IgG, Serum (07/07/2023 11:22 AM CDT) Pathologist [facility] Antinuclear Ab, HEp-2 Substrate, S Positive 1:160(A) <1:80 (Negativ e) 07/07/2023 8:57 PM CDT [facility] Comment: ----ADDITIONAL INFORMATION---- Method: Immunofluorescence using HEp-2 cellular substrate. MALLIKA Titer: 1:160 07/07/2023 8:57 PM CDT [facility] MALLIKA Pattern: Speckled 07/07/2023 8:57 PM CDT [facility] Blood (Blood, Venous) 07/07/2023 11:22 AM CDT 07/07/2023 3:42 PM CDT Iwona Garza LAB BLOOD ADD-ON Performing Organization Address [facility] de Phone Number [facility] [address] [place] [id number] [facility] [address] [place] [address] * QuantiFERON-Tb Gold Plus, Blood (07/07/2023 11:22 AM CDT) [facility] QuantiFERON-TB Gold Plus Result Negative Negative 07/08/2023 11:19 AM CDT [facility] Comment: No interferon-gamma response to M. tuberculosis [...] Result 0.00 IU/mL 07/08/2023 11:19 AM CDT [facility] Blood (Blood, Venous) 07/07/2023 11:22 AM CDT 07/07/2023 2:00 PM CDT Narrative [facility] - 07/08/2023 11:19 AM CDT Specimen Information: Specimen ID: [id number] Specimen Type: Blood Specimen Collection Start Date: 07/07/2023 11:22 AM Specimen Received Date: 07/07/2023 ??2:00 PM Specimen ID: [id number] Specimen Type: Blood Specimen Collection Start Date: 07/07/2023 11:22 AM Specimen Received Date: 07/07/2023 ??2:00 PM Specimen ID: [id number] Specimen Type: Blood Specimen Collection Start Date: 07/07/2023 11:22 AM Specimen Received Date: 07/07/2023 ??2:00 PM Specimen ID: [id number] Specimen Type: Blood Specimen Collection Start Date: 07/07/2023 11:22 AM Specimen Received Date: 07/07/2023 ??2:00 PM Arthur Castorena M.D., Ph.D. LAB MICROBIOLOG Y - BLOOD ORDERABLES [facility] [address] [place] [address] [facility] [address] [place] [id number] * Thyroid Function [place] (07/07/2023 11:22 AM CDT) TSH, Sensitive 1.7 0.3 - 4.2 mIU/L 07/07/2023 12:20 PM CDT [facility] Blood (Blood, Venous) 07/07/2023 11:22 AM CDT 07/07/2023 11:53 AM CDT Arthur Castorena M.D., Ph.D. LAB BLOOD ADD-O N [facility] [address] [place] [address], [facility] DTL [facility] [address] [place] [address] * Hepatitis Be Ag and Ab (07/07/2023 11:22 AM CDT) Hepatitis Be Ag, S Negative Negative 07/07/2023 9:07 PM CDT [facility] HBe Antibody, S Negative Negative 07/07/2023 9:23 PM CDT [facility] Blood (Blood, Venous) 07/07/2023 11:22 AM CDT 07/07/2023 5:00 PM CDT Arthur Castorena M.D., Ph.D. LAB MICROBIOLOG Y - BLOOD ORDERABLES Performing Organization Address City/[facility]/ZIP Co de Phone Number [facility] [address] [place] [address] [facility] [address] [place] [address] * Antibody to Extractable Nuclear Antigen Evaluation (07/07/2023 11:22 AM CDT) SS-A/Ro Ab, IgG, S 0.2 <1.0 (Negative) U 07/07/2023 5:10 PM CDT [facility] SS-B/La Ab, IgG, S <0.2 <1.0 (Negative) U 07/07/2023 5:10 PM CDT [facility] Sm Ab, IgG, S <0.2 <1.0 (Negative) U 07/07/2023 5:10 PM CDT [facility] TAX LAWYER Ab, IgG, S 0.5 <1.0 (Negative) U 07/07/2023 5:10 PM CDT [facility] Scl 70 Ab, IgG, S <0.2 <1.0 (Negative) U 07/07/2023 5:10 PM CDT [facility] Karishma 1 Ab, IgG, S <0.2 <1.0 (Negative) U 07/07/2023 5:10 PM CDT [facility] Blood (Blood, Venous) 07/07/2023 11:22 AM CDT 07/07/2023 4:06 PM CDT Arthur Castorena M.D., Ph.D. LAB BLOOD ADD-O N Performing Organization Address [facility] Co de Phone Number [facility] [address] [place], [place] [phone] [place] [address] [place] [address] * HCV Ab w/Reflex to HCV PCR, Serum (07/07/2023 11:22 AM CDT) HCV Ab, S Negative Negative 07/07/2023 9:20 PM CDT [facility] Comment:[id number] rat io is <1.00. Blood (Blood, Venous) 07/07/2023 11:22 AM CDT 07/07/2023 5:00 PM CDT Arthur Castorena M.D., Ph.D. LAB MICROBIOLOG Y - BLOOD ORDERABLES Performing Organization Address [facility] de Phone Number [facility] [address] [place] [address] [place] [address] * Cyclic Citrullinated Peptide Antibodies, IgG (07/07/2023 11:22 AM CDT) Cyclic Citrullinated Peptide Ab, S <15.6 <20.0 (Negative) U 07/07/2023 6:37 PM CDT [facility] Blood (Blood, Venous) 07/07/2023 11:22 AM CDT 07/07/2023 3:37 PM CDT Iwona CowanS. LAB BLOOD ADD-ON Performing Organization Address [facility] Co de Phone Number [facility] [address] [place] [id number] [facility] [address] [place] [address] * Aldolase (07/07/2023 11:22 AM CDT) Aldolase, S 5.5 <7.7 U/L 07/07/2023 2: 09 PM CDT DT Blood (Blood, Venous) 07/07/2023 11:22 AM CDT 07/07/2023 1:30 PM CDT Artuhr Castorena M.D., Ph.D. LAB BLOOD NON A DD-ON Performing Organization Address [facility] Co de Phone Number [facility] [address] [place] [address], [facility] [address] [place] [address] * HBc Total Ab, Serum (07/07/2023 11:22 AM CDT) Pathologist [facility] HBc Total Ab, S Negative Negative 07/07/2023 9:25 PM CDT [facility] Blood (Blood, Venous) 07/07/2023 11:22 AM CDT 07/07/2023 5:00 PM CDT Arthur Castorena M.D., Ph.D. LAB MICROBIOLOG Y - BLOOD ORDERABLES Performing Organization Address City/[facility]/ZIP Co de Phone Number [facility] [address] [place] [address] [facility] [address] [place] [address] * HBs Antibody, Serum (07/07/2023 11:22 AM CDT) HBs Antibody, S Negative 07/07/2023 9:24 PM CDT [facility] Comment: Patient is presumed to be not immune to infection with HBV. ----REFERENCE VALUE---- Unvaccinated: Negative Vaccinated: Positive HBs Antibody, Quantitative, S <5.0 mIU/mL 07/07/2023 9:24 PM CDT [facility] Comment: ----REFERENCE VALUE---- Unvaccinated: <5.0 Vaccinated: >=12.0 Blood (Blood, Venous) 07/07/2023 11:22 AM CDT 07/07/2023 5:00 PM CDT Arthur Castorena M.D., Ph.D. LAB MICROBIOLOG Y - BLOOD ORDERABLES Performing Organization Address City/[facility]/ZIP Co de Phone Number [facility] [address] [place] [id number] [facility] [address] [place] [id number] * Hepatitis B Surface Antigen (07/07/2023 11:22 AM CDT) HBs Antigen, S Negative Negative 07/07/2023 9:02 PM CDT [facility] Blood (Blood, Venous) 07/07/2023 11:22 AM CDT 07/07/2023 5:00 PM CDT Arthur Castorena M.D., Ph.D. LAB MICROBIOLOG Y - BLOOD ORDERABLES Performing Organization Address [facility] Co de Phone Number [facility] [address] [place] [id number] [facility] [address] [place] [id number] * Sedimentation Rate (07/07/2023 11:22 AM CDT) Sedimentation Rate, B 9 3 - 28 mm/h 07/07/2023 1:01 PM CDT [facility] Blood (Blood, Venous) 07/07/2023 11:22 AM CDT 07/07/2023 11:50 AM CDT Iwona Garza LAB BLOOD ADD-ON Performing Organization Address City/[facility]/ZIP Co de Phone Number [facility] [address] [place] [address], [facility] DTL [facility] [address] [place] [address] * (ABNORMAL) CBC with Differential, Blood (07/07/2023 11:22 AM CDT) Hemoglobin 15.7(H) 11.6 - 15.0 g/dL 07/07/2023 [...] AM CDT Iwona Garza LAB BLOOD ADD-ON [facility] [address] [place] [address], [facility] DTL [facility] [address] [place] [address] [facility] [address] [place] [address] * Rheumatoid Factor (07/07/2023 11:22 AM CDT) Rheumatoid Factor, S <15 <15 IU/mL 07/08/2023 10:38 AM CDT [facility] Blood (Blood, Venous) 07/07/2023 11:22 AM CDT 07/08/2023 9:20 AM CDT Iwona Garza LAB BLOOD ADD-ON [facility] [address] [address] [facility] [address] [place] [address] * Complement C3 (07/07/2023 11:22 AM CDT) Complement C3, S 112 75 - 175 mg/dL 07/07/2023 4:29 PM CDT [facility] Blood (Blood, Venous) 07/07/2023 11:22 AM CDT 07/07/2023 3:29 PM CDT Arthur Castorena M.D., Ph.D. LAB BLOOD ADD-O N [facility] [address] [place] [address] [facility] [address] [place] [address] * Complement C4 (07/07/2023 11:22 AM CDT) Complement C4, S 25 14 - 40 mg/dL 07/07/2023 4:29 PM CDT [facility] Blood (Blood, Venous) 07/07/2023 11:22 AM CDT 07/07/2023 3:29 PM CDT Arthur Castorena M.D., Ph.D. LAB BLOOD ADD-O N [facility] [address] [place] [address] [facility] [address] [place] [address] * CRP (C-Reactive Protein) (07/07/2023 11:22 AM CDT) C-Reactive Protein (CRP), S <3.0 <5.0 mg/L 07/07/2023 12:20 PM CDT [facility] Blood (Blood, Venous) 07/07/2023 11:22 AM CDT 07/07/2023 11:53 AM CDT Iwona Garza LAB BLOOD ADD-ON Performing Organization Address [facility] Co de Phone Number [facility] [address] [place], [place] [phone] [place] [address] [address] [place] [address] * LD (Lactate Dehydrogenase) (07/07/2023 11:22 AM CDT) [facility] Lactate Dehydrogenase (LD), S 215 122 - 222 U/L 07/07/2023 12:20 PM CDT [facility] Blood (Blood, Venous) 07/07/2023 11:22 AM CDT 07/07/2023 11:53 AM CDT Arthur Castorena M.D., Ph.D. LAB BLOOD NON A DD-ON Performing Organization Address City/[facility]/ZIP Co de Phone Number [facility] [address] [place], [place] [id number] [place] [address] [facility] [address] [place] [address] * CK (Creatine Kinase) (07/07/2023 11:22 AM CDT) Creatine Kinase (CK), S 48 26 - 192 U/L 07/07/2023 12:20 PM CDT [facility] Blood (Blood, Venous) 07/07/2023 11:22 AM CDT 07/07/2023 11:53 AM CDT Arthur Castorena M.D., Ph.D. LAB BLOOD ADD-O N [facility] [address] [place] [address], [facility] DTL [facility] [address] [place] [address] * (ABNORMAL) Comprehensive Metabolic Panel (07/07/2023 11:22 AM CDT) Pathologist [facility] Potassium, S 3.7 3.6 - 5.2 mmol/L [...] AM CDT Iwona Garza LAB BLOOD ADD-ON Performing Organization Address City/State/[facility] Co de Phone Number [facility] [address] [place] [address], [facility] [address] [place] [address] * DX Hand Bilateral 3+ Views (07/07/2023 10:29 AM CDT) Anatomical Region Laterality Modality Upper Extremity, Hand, Muscu loskeletal RST LOS, Musculoskeletal ARZ LOS, Muskuloskeletal FLA LOS Bilateral Digit al Radiography Impressions 07/07/2023 10:41 AM CDT Mild scattered degenerative change both hands and wrists with more advanced degenerative change at the 1st CMC joints. No erosive change. Soft tissue swelling adjacent to a few IP joints bilaterally. Narrative 07/07/2023 10:41 AM CDT EXAM: ??DX HAND BILATERAL 3+ VIEWS Procedure Note Arnol Velazquez M.D. - 07/07/2023 EXAM: DX HAND BILATERAL 3+ VIEWS IMPRESSION: Mild scattered degenerative change both hands and wrists with moreadvanced degenerative change at the 1st CMC joints. No erosive change.Soft tissue swelling adjacent to a few IP joints bilaterally. Iwona Moeller. [facility] PROCEDURES * DX Foot Bilateral 3+ Views (07/07/2023 10:27 AM CDT) Anatomical Region Laterality Modality Lower Extremity, Foot, Muscu loskeletal RST LOS, Musculoskeletal ARZ LOS, Muskuloskeletal FLA LOS Bilateral Digit al Radiography Impressions 07/07/2023 10:39 AM CDT Old healed fracture left 5th metatarsal shaft and neck. Scattered degenerative changes both feet. No erosive change. Right hallux valgus. Bilateral hammertoe deformities. Bilateral Achilles calcaneal spurs. Narrative 07/07/2023 10:39 AM CDT EXAM: ??DX FOOT BILATERAL 3+ VIEWS Procedure Note Arnol Velazquez M.D. - 07/07/2023 EXAM: DX FOOT BILATERAL 3+ VIEWS IMPRESSION: Old healed fracture left 5th metatarsal shaft and neck. Scattereddegenerative changes both feet. No erosive change. Right hallux valgus.Bilateral hammertoe deformities. Bilateral Achilles calcaneal spurs. Iwona CowanSElaine [facility] SHAKIRA GING PROCEDURES * DX Sacroiliac Joints 3+ Views (07/07/2023 10:27 AM CDT) Anatomical Region Laterality Modality Sacral Spine, Musculoskeleta l RST LOS, Musculoskeletal ARZ LOS, Muskuloskeletal FLA LOS N/A Digital Radiography Impressions 07/07/2023 10:38 AM CDT Mild degenerative arthritis both SI joints. The SI joints are otherwise normal in appearance. Advanced degenerative change of the pubic symphysis. Vascular calcifications. Narrative 07/07/2023 10:38 AM CDT EXAM: ??DX SACROILIAC JOINTS 3+ VIEWS Procedure Note Arnol Velazquez M.D. - 07/07/2023 EXAM: DX SACROILIAC JOINTS 3+ VIEWS IMPRESSION: Mild degenerative arthritis both SI joints. The SI joints are otherwisenormal in appearance. Advanced degenerative change of the pubic symphysis.Vascular calcifications. Iwona Garza [facility] SHAKIRA GING PROCEDURES from Last 3 Months Care Teams Computer Equipment Installer Relationship Specialty Start Date End Date Elsewhere, Pcp PCP - General 04/18/19
--- OUTSIDE RECORDS SUMMARY | 2023-07-21 14:45 | XMS_ITS | Encounter Summary ---
Author Name Unknown Organization [facility] Address [address] [place] [phone] Care Team Providers Care Wind Up Operator Name Role Phone Elsewhere, Pcp Primary Care Provider Unavailabl e Encounter Details Date Type Department Care Team (Late st Contact Info) Description 07/15/2023 Orders Only Division of Rheumatology in [place], [place] [address] [place] [phone] Arthur Castorena M.D., Ph.D. [address] [place] [phone] Polymyalgia Rheumatica (HCC) (Primary Dx) Social History Tobacco Use Types Packs/Day Years Used Date Smoking Tobacco: Every Day [facility] Utilities Answer Date Recorded In the past 12 months has th e electric, gas, oil, or water company threatened to shut off services in your [...] your living situation today? I have a [facility] place to live 07/07/2023 Sex and Gender Information Value Date Recorded Sex Assigned at Female 07/07/2023 7:47 AM CDT Gender Identity Female 07/07/2023 7:47 AM CDT Sexual Orientation Straight 07/07/2023 7: 47 AM CDT documented as of this encounter Plan of Treatment Upcoming Encounters Date Type Department Care Team (Late st Contact Info) Description 08/27/2023 2:00 PM CDT Comprehensive Visit Department of Dermatology in [place], [place] [address] [place] [phone] Digna Le M.D. [address] [place] [phone] documented as of this encounter Visit Diagnoses Diagnosis Polymyalgia Rheumatica (HCC)- Primary documented in this encounter Care Teams Wind Up Operator Relationship Specialty Start Date End Date Elsewhere, Pcp PCP - General 04/18/19 documented as of this encounter
--- OUTSIDE RECORDS SUMMARY | 2023-07-21 14:45 | XMS_ITS | Encounter Summary ---
Author Name Unknown Organization [facility] Address [address] [place] [phone] Care Team Providers Care Data Report Analyst Name Role Phone Elsewhere, Pcp Primary Care Provider Unavailabl e Reason for Visit * Appointment Request (Routine) - Closed Specialty Diagnoses / Procedures Referred By Antonio t Referred To Contact Rheumatology Arthur Castorena M.D., Ph.D. [address] [place] [phone] Referral ID Status Reason Start Date Expiration Date Visits Re quested Visits Authorized [id number] Closed 04/22/2023 04/21/2024 1 1 Encounter Details Date Type Department Care Team (Latest Contact Info) Description 07/10/2023 11:00 AM CDT Office Visit Division of Rheumatology in [place], [place] [address] [place] [phone] Arthur Castorena M.D., Ph.D. [address] [place] [phone] Polymyalgia Rheumatica (HCC) (Primary Dx); Lupus Discoid Erythematosus; Rash; High Risk Medication; Myalgia Social History Tobacco Use Types Packs/Day Years Used Date Smoking Tobacco: Every Day [facility] Utilities Answer Date Recorded In the [...] your living situation today? I have a [facility] place to live 07/07/2023 Sex and Gender Information Value Date Recorded Sex Assigned at Female 07/07/2023 7:47 AM CDT Gender Identity Female 07/07/2023 7:47 AM CDT Sexual Orientation Straight 07/07/2023 7: 47 AM CDT documented as of this encounter Progress Notes * Arthur Castorena M.D., Ph.D. - 07/10/2023 11:00 AM CDT SUBJECTIVE CHIEF COMPLAINT / REASON FOR VISIT This is the outpatient summary of Ms. Bailee Maki's episode of care in the Division of Rheumatology at [facility]. I saw the patient today for an in-person return visit. I discussed the outpatient summary and plan of care with the patient. Previous Reports Reviewed:lab reports, outside records, radiology reports, referral letter/letters,and x-ray reports The following portions of the patient's history were reviewed and updated as appropriate: allergies, current medications, family history, medical history, social history, surgical history, and problem list. OBJECTIVE DIAGNOSTICS I reviewed the pertinent laboratory and diagnostic test results. I reviewed the imaging studies andagree with the interpretations as recorded. Please see the encounter report for further details. 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 Overall symptoms not consistent with PMR given not joint centered and no involvement of shoulders and hips. Was having more muscle pains and proximal weakness affecting daily activities. 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 She does have HLA-B27 pos itivity, but does not fit with her constellation of symptoms. Currently on steroids and has been able to taper down to 15 mg. Testing mostly negative with a positive MALLIKA, but KANDICE negative, complements normal, and ESR and CRP normal. CK and aldolase normal. Xrays with degenerative changes. However all of these results are on prednisone so the main test will be to see how she is able to taper of prednisone and if any symptoms return. - see dermatology for assessment of skin changes and concern for possible dermatomyositis - continue slow prednisone taper and see if symptoms return. Would recommend going down by 2.5 mg every 2 weeks until at 10 mg and then 1 mg every 2-3 weeks depending on how she is doing with each decrease. - Recommend vitamin-D 1000 International Unit daily and calcium, 1200 mg daily between diet and supplement for prevention of glucocorticoid induced osteoporosis. Recommend updating DEXA if not done already FOLLOW-UP Long-term management and follow-up: Ms. Maki will transition follow-up to a local primary care provider. Rheumatology-related medications: No rheumatology-related medications were prescribed at this visit. Disease flares or relapse: Ms. Maki will see her local primary care provider. Electronically signed by: Arthur Castorena M.D., Ph.D. 07/10/23 11:17 AM CDT documented in this encounter Plan of Treatment Upcoming Encounters Date Type Department Care Team (Late st Contact Info) Description 08/27/2023 2:00 PM CDT Comprehensive Visit Department of Dermatology in [place], [place] 200 [place] [phone] Digna Le M.D. 200 [place] [phone] documented as of this encounter Visit Diagnoses Diagnosis Polymyalgia Rheumatica (HCC)- Primary Lupus Discoid Erythematosus Rash High Risk Medication Myalgia documented in this encounter Care Teams Data Report Analyst Relationship Specialty Start Date End Date Elsewhere, Pcp PCP - General 04/18/19 documented as of this encounter
--- OUTSIDE RECORDS SUMMARY | 2023-07-21 14:45 | XMS_ITS | Encounter Summary ---
Author Name Unknown Organization [facility] Address [address] [place] [address] Care Team Providers Care Product Development Director Name Role Phone Elsewhere, Pcp Primary Care Provider Unavailabl e Reason for Referral * Outpatient (Routine) - Closed Specialty Diagnoses / Procedures Referred By Antonio t Referred To Contact Diagnoses Polymyalgia Rheumatica (HCC) Procedures DX Hand Bilateral 3+ Views Iwona Bermudez M.B.B.S. [address] [place] [phone] [facility] Referral ID Status Reason Start Date Expiration Date Visits Re quested Visits Authorized [id number] Closed 04/21/2023 04/20/2024 1 1 Reason for Visit * Outpatient (Routine) - Closed Specialty Diagnoses / Procedures Referred By Antonio perez Referred To Contact Diagnoses Polymyalgia Rheumatica (HCC) Procedures DX Hand Bilateral 3+ Views Iwona Bermudez M.B.B.S. 200 [place] [phone] [facility] Referral ID Status Reason Start Date Expiration Date Visits Re quested Visits Authorized [id number] Closed 04/21/2023 04/20/2024 1 1 Encounter Details Date Type Department Care Team (Latest Contact Info) Description 07/07/2023 9:58 AM CDT - 07/07/2023 11:05 AM CDT Hospital Encounter Department of Radiology, [facility], in [place], [place] [address] [place] [phone] Iwona Bermudez M.B.B.S. [address] [place] [phone] Polymyalgia Rheumatica (HCC) Discharge Disposition: Home or Self Care Social History Tobacco Use Types Packs/Day Years Used Date Smoking Tobacco: Every Day [facility] Utilities Answer Date Recorded In the past 12 months has th e [employer], gas, oil, or water [employer] threatened to shut off services in your [...] your living situation today? I have a [facility] place to live 07/07/2023 Sex and [...] CDT Comprehensive Visit Department of Dermatology in [place], [place] [address] [place] [phone] Digna Le M.D. [address] [place] [phone] documented as of this encounter Procedures Procedure Name Priority Date/Time Associated Diagnosis Comments DX HAND BILATERAL 3+ VIEWS RAD - Routine (most inpatients and all outpatients) 07/07/2023 10:29 AM CDT Polymyalgia Rheumatica (HCC) documented in this encounter Results * DX Hand Bilateral 3+ Views (07/07/2023 [...] to a few IP joints bilaterally. Iwona Garza IMG DIAGNOSTIC SHAKIRA GING PROCEDURES documented in this encounter Visit Diagnoses Diagnosis Polymyalgia Rheumatica (HCC) documented in this encounter Care Teams Product Development Director Relationship Specialty Start Date End Date Elsewhere, Pcp PCP - General 04/18/19 documented as of this encounter
--- OUTSIDE RECORDS SUMMARY | 2023-07-21 14:45 | XMS_ITS ---
Author Name Unknown Organization [facility] Address [address] [place] [address] Care Team Providers Care Agricultural Engineering Teacher Name Role Phone Unavailable Unavailable Unavailable Surgery Details Not on file Complications Check Surgery Details section. Procedure Estimated Blood Loss Check Surgery Details section. Procedure Findings Check Surgery Details section. Procedure Specimens Taken Check Surgery Details section.
--- OUTSIDE RECORDS SUMMARY | 2023-07-21 14:45 | XMS_ITS | Encounter Summary ---
Author Name Unknown Organization [facility] Address [address] [place] [address] Care Team Providers Care Enrollment Representative Name Role Phone Elsewhere, Pcp Primary Care Provider Unavailabl e Reason for Visit * Reason Onset Date Comments Med Question 07/15/2023 Encounter Details Date Type Department Care Team (Latest Contact Info) Description 07/15/2023 Clinical Communication Division of Rheumatology in [place], [place] [address] [place] [phone] Arthur Castorena M.D., Ph.D. [address] [place] [phone] Med Question Social History Tobacco Use Types Packs/Day Years Used Date Smoking Tobacco: Every Day [facility] Utilities Answer Date Recorded In the past [...] your living situation today? I have a [facility] place to live 07/07/2023 Sex and Gender [...] CDT Comprehensive Visit Department of Dermatology in [place], [place] [address] [place] [address] Digna Le M.D. [address] [place] [phone] documented as of this encounter Visit Diagnoses Not on filedocumented in this encounter Care Teams Enrollment Representative Relationship Specialty Start Date End Date Elsewhere, Pcp PCP - General 04/18/19 documented as of this encounter
--- OUTSIDE RECORDS SUMMARY | 2023-07-21 14:45 | XMS_ITS | Referral Summary ---
Author Name Unknown Organization [facility] Address [address] [place] [address] Care Team Providers Care Dietitian Therapeutic Name Role Phone Elsewhere, Pcp Primary Care Provider Unavailabl e Source Comments Patient records contain information from all sites at [facility]. For routine questions regarding patient records, call [phone] during business hours, M-F 8:00 AM - 5:00 PM Central Time. Record requests for emergency care only can be directed to [phone] at any time.[facility] Encounters Date Type Department Care Team Description 07/15/2023 Orders Only Division of Rheumatology in [place], [place] [address] [place] [phone] Arthur Castorena M.D., Ph.D. Polymyalgia Rheumatica (HCC) (Primary Dx) 07/15/2023 Clinical Communication Division of Rheumatology in [place], [place] [address] [place] [phone] Arthur Castorena M.D., Ph.D. Med Question 07/10/2023 11:00 AM CDT Office Visit Division of Rheumatology in [place], [place] [address] [place] [phone] Arthur Castorena M.D., Ph.D. Polymyalgia Rheumatica (HCC) (Primary Dx); Lupus Discoid Erythematosus; Rash; High Risk Medication; Myalgia 07/07/2023 11:06 AM CDT - 07/07/2023 11:59 PM CDT Hospital Encounter Department of Laboratory Medicine and Pathology, [facility], in [place], [place] [address] [place] [address] Iwona Bermudez M.B.B.S. Polymyalgia Rheumatica (HCC); Myalgia Discharge Disposition: Home or Self Care 07/07/2023 9:58 AM CDT - 07/07/2023 11:05 AM CDT Hospital Encounter Department of Radiology, [facility], in [place], [place] [address] [place] [address] Iwona Bermudez M.B.B.SElaine Polymyalgia Rheumatica (HCC) Discharge Disposition: Home or Self Care 07/07/2023 9:58 AM CDT - 07/07/2023 11:05 AM CDT Hospital Encounter Department of Radiology, [facility], in [place], [place] [address] [place] [phone] Iwona Bermudez M.B.B.S. Polymyalgia Rheumatica (HCC) Discharge Disposition: Home or Self Care 07/07/2023 8:30 AM CDT Comprehensive Visit Division of Rheumatology in [place], [place] [address] [place] [phone] Arthur Castorena M.D., Ph.D. Myalgia (Primary Dx); Lupus Discoid Erythematosus; Rash; High Risk Medication 04/21/2023 Orders Only Division of Rheumatology in [place], [place] [address] [place] [phone] Iwona Bermudez M.B.B.S. Polymyalgia Rheumatica (HCC) (Primary Dx) from Last 3 Months Medications Medication Sig Dispensed Refills Start Date [...] Discontinued Active Problems No known active problems Immunizations Name Administration Dates Next Due PPSV23(Discontinued) 05/02/2003 Social History Tobacco Use Types Packs/Day Years Used Date Smoking Tobacco: Every Day [facility] Utilities Answer Date Recorded In the past 12 months has [facility], gas, oil, or water [employer] threatened to shut off services in your [...] your living situation today? I have a [facility] place to live 07/07/2023 Sex and Gender [...] CDT Comprehensive Visit Department of Dermatology in [place], [place] [address] [place] [address] Digna Le M.D. [address] [place] [address] Procedures Procedure Name Priority Date/Time Associated Diagnosis [...] Screen, Plasma (07/07/2023 11:22 AM CDT) Pathologist [facility] HIV-1/-2 Ag and Ab Screen, P Negative Negative 07/07/2023 4:24 PM CDT [facility] Comment: Negative result does not rule out HIV infection. If exposure to HIV infection occurred <14 days ago, contact the laboratory to request addition of HIV-1/HIV-2 RNA detection, Plasma (HIP12). Blood (Blood, Venous) 07/07/2023 11:22 AM CDT 07/07/2023 3:33 PM CDT Arthur Castorena M.D., Ph.D. LAB MICROBIOLOG Y - BLOOD ORDERABLES Performing Organization Address [facility] Co de Phone Number [place] [phone] [place] [address] [place] [phone] [place] [address] * (ABNORMAL) Antinuclear Antibodies, HEp-2 Substrate, IgG, Serum (07/07/2023 11:22 AM CDT) [facility] Antinuclear Ab, HEp-2 Substrate, S Positive 1:160(A) <1:80 (Negativ e) 07/07/2023 8:57 PM CDT [facility] Comment: ----ADDITIONAL INFORMATION---- Method: Immunofluorescence using HEp-2 cellular substrate. MALLIKA Titer: 1:160 07/07/2023 8:57 PM CDT [facility] MALLIKA Pattern: Speckled 07/07/2023 8:57 PM CDT [facility] Blood (Blood, Venous) 07/07/2023 11:22 AM CDT 07/07/2023 3:42 PM CDT Iwona Moeller. LAB BLOOD ADD-ON Performing Organization Address City/[facility]/ZIP Co de Phone Number [place] [phone] [address] [facility] [address] [place] [address] * QuantiFERON-Tb Gold Plus, Blood (07/07/2023 11:22 AM CDT) [facility] QuantiFERON-TB Gold Plus Result Negative Negative 07/08/2023 11:19 AM CDT [facility] Comment: No interferon-gamma response to M. tuberculosis antigens was detected. Latent infection with M. tuberculosis is unlikely. A single negative result does not exclude infection with M. tuberculosis. In patients at high risk for M.tuberculosis infection, a second test should be considered in accordance with the 2017 ATS/IDSA/CDC Clinical Practice Guidelines for Diagnosis of Tuberculosis in Adults and Children [Maira BEAVERS et. al. Clin. Infect. Dis. 2017;64(2):111-115]. The [...] Result 0.00 IU/mL 07/08/2023 11:19 AM CDT [facility] Blood (Blood, Venous) 07/07/2023 11:22 AM CDT 07/07/2023 2:00 PM CDT Narrative [facility] - 07/08/2023 11:19 AM CDT Specimen Information: Specimen ID: [id number] Specimen Type: Blood Specimen Collection Start Date: 07/07/2023 11:22 AM Specimen Received Date: 07/07/2023 ??2:00 PM Specimen ID: [id number] Specimen Type: Blood Specimen Collection Start Date: 07/07/2023 11:22 AM Specimen Received Date: 07/07/2023 ??2:00 PM Specimen ID: [id number] Specimen Type: Blood Specimen Collection Start Date: 07/07/2023 11:22 AM Specimen Received Date: 07/07/2023 ??2:00 PM Specimen ID: [id number] Specimen Type: Blood Specimen Collection Start Date: 07/07/2023 11:22 AM Specimen Received Date: 07/07/2023 ??2:00 PM Arthur Castorena M.D., Ph.D. LAB MICROBIOLOG Y - BLOOD ORDERABLES [facility] [address] [place] [address] [facility] [address] [place] [address] * Thyroid Function [place] (07/07/2023 11:22 AM CDT) Pathologist [facility] TSH, Sensitive 1.7 0.3 - 4.2 mIU/L 07/07/2023 12:20 PM CDT [facility] Blood (Blood, Venous) 07/07/2023 11:22 AM CDT 07/07/2023 11:53 AM CDT Arthur Castorena M.D., Ph.D. LAB BLOOD ADD-O N Performing Organization Address City/[facility]/ZIP Co de Phone Number [facility] [address] [place] [address], [address] [address] * Hepatitis Be Ag and Ab (07/07/2023 11:22 AM CDT) Pathologist [facility] Hepatitis Be Ag, S Negative Negative 07/07/2023 9:07 PM CDT [facility] HBe Antibody, S Negative Negative 07/07/2023 9:23 PM CDT [facility] Blood (Blood, Venous) 07/07/2023 11:22 AM CDT 07/07/2023 5:00 PM CDT Arthur Castorena M.D., Ph.D. LAB MICROBIOLOG Y - BLOOD ORDERABLES [facility] [address] [place] [address] [facility] [address] [place] [address] * Antibody to Extractable Nuclear Antigen Evaluation (07/07/2023 11:22 AM CDT) SS-A/Ro Ab, IgG, S 0.2 <1.0 (Negative) U 07/07/2023 5:10 PM CDT [facility] SS-B/La Ab, IgG, S <0.2 <1.0 (Negative) U 07/07/2023 5:10 PM CDT [facility] Sm Ab, IgG, S <0.2 <1.0 (Negative) U 07/07/2023 5:10 PM CDT [facility] BARYTES GRINDER Ab, IgG, S 0.5 <1.0 (Negative) U 07/07/2023 5:10 PM CDT [facility] Scl 70 Ab, IgG, S <0.2 <1.0 (Negative) U 07/07/2023 5:10 PM CDT [facility] Karishma 1 Ab, IgG, S <0.2 <1.0 (Negative) U 07/07/2023 5:10 PM CDT [facility] Blood (Blood, Venous) 07/07/2023 11:22 AM CDT 07/07/2023 4:06 PM CDT Arthur Castorena M.D., Ph.D. LAB BLOOD ADD-O N Performing Organization Address City/State/[facility] Co de Phone Number [facility] [address] [place] [address] [facility] [address] [place] [address] * HCV Ab w/Reflex to HCV PCR, Serum (07/07/2023 11:22 AM CDT) HCV Ab, S Negative Negative 07/07/2023 9:20 PM CDT [facility] Comment:Ddypnb-vl-[id number] rat io is <1.00. Blood (Blood, Venous) 07/07/2023 11:22 AM CDT 07/07/2023 5:00 PM CDT Arthur Castorena M.D., Ph.D. LAB MICROBIOLOG Y - BLOOD ORDERABLES [facility] [address] [place] [address] [facility] [address] [place] [address] * Cyclic Citrullinated Peptide Antibodies, IgG (07/07/2023 11:22 AM CDT) Cyclic Citrullinated Peptide Ab, S <15.6 <20.0 (Negative) U 07/07/2023 6:37 PM CDT [facility] Blood (Blood, Venous) 07/07/2023 11:22 AM CDT 07/07/2023 3:37 PM CDT Iwona Garza LAB BLOOD ADD-ON Performing Organization Address City/[facility] Co de Phone Number [facility] [address] [place] [address] [facility] [address] [place] [address] * Aldolase (07/07/2023 11:22 AM CDT) Pathologist [facility] Aldolase, S 5.5 <7.7 U/L 07/07/2023 2: 09 PM CDT [facility] Blood (Blood, Venous) 07/07/2023 11:22 AM CDT 07/07/2023 1:30 PM CDT Arthur Castorena M.D., Ph.D. LAB BLOOD NON A DD-ON Performing Organization Address City/[facility]/ZIP Co de Phone Number [facility] [address] [place] [address], [facility] DTFroedtert Hospital [address] [place] [address] * HBc Total Ab, Serum (07/07/2023 11:22 AM CDT) Pathologist [facility] HBc Total Ab, S Negative Negative 07/07/2023 9:25 PM CDT [facility] Blood (Blood, Venous) 07/07/2023 11:22 AM CDT 07/07/2023 5:00 PM CDT Arthur Castorena M.D., Ph.D. LAB MICROBIOLOG Y - BLOOD ORDERABLES [facility] [address] [place] [address] [facility] [address] [place] [address] * HBs Antibody, Serum (07/07/2023 11:22 AM CDT) HBs Antibody, S Negative 07/07/2023 9:24 PM CDT [facility] Comment: Patient is presumed to be not immune to infection with HBV. ----REFERENCE VALUE---- Unvaccinated: Negative Vaccinated: Positive HBs Antibody, Quantitative, S <5.0 mIU/mL 07/07/2023 9:24 PM CDT [facility] Comment: ----REFERENCE VALUE---- Unvaccinated: <5.0 Vaccinated: >=12.0 Blood (Blood, Venous) 07/07/2023 11:22 AM CDT 07/07/2023 5:00 PM CDT Arthur Castorena M.D., Ph.D. LAB MICROBIOLOG Y - BLOOD ORDERABLES Performing Organization Address City/[facility]/ZIP Co de Phone Number [facility] [address] [place] [address] [facility] [address] [place] [address] * Hepatitis B Surface Antigen (07/07/2023 11:22 AM CDT) HBs Antigen, S Negative Negative 07/07/2023 9:02 PM CDT [facility] Blood (Blood, Venous) 07/07/2023 11:22 AM CDT 07/07/2023 5:00 PM CDT Arthur Castorena M.D., Ph.D. LAB MICROBIOLOG Y - BLOOD ORDERABLES [facility] [address] [place] [address] [facility] [address] [place] [address] * Sedimentation Rate (07/07/2023 11:22 AM CDT) [facility] Sedimentation Rate, B 9 3 - 28 mm/h 07/07/2023 1:01 PM CDT [facility] Blood (Blood, Venous) 07/07/2023 11:22 AM CDT 07/07/2023 11:50 AM CDT Iwona Garza LAB BLOOD ADD-ON [facility] [address] [place] [address], [facility] [address] [place] [address] * (ABNORMAL) CBC with Differential, Blood (07/07/2023 11:22 AM CDT) [facility] Hemoglobin 15.7(H) 11.6 - 15.0 g/dL [...] AM CDT 07/07/2023 11:50 AM CDT Iwona CowanSElaine LAB BLOOD ADD-ON [facility] [address] [place] [address], [facility] DTL [facility] [address] [place] [address] [facility] [address] [place] [address] * Rheumatoid Factor (07/07/2023 11:22 AM CDT) Rheumatoid Factor, S <15 <15 IU/mL 07/08/2023 10:38 AM CDT [facility] Blood (Blood, Venous) 07/07/2023 11:22 AM CDT 07/08/2023 9:20 AM CDT Iwona CowanSElaine LAB BLOOD ADD-ON [facility] [address] [place] [address] [facility] [address] [place] [address] * Complement C3 (07/07/2023 11:22 AM CDT) Complement C3, S 112 75 - 175 mg/dL 07/07/2023 4:29 PM CDT [facility] Blood (Blood, Venous) 07/07/2023 11:22 AM CDT 07/07/2023 3:29 PM CDT Arthur Castorena M.D., Ph.D. LAB BLOOD ADD-O N Performing Organization Address City/[facility]/ZIP Co de Phone Number [facility] [address] [place] [address] [facility] [address] [place] [address] * Complement C4 (07/07/2023 11:22 AM CDT) Pathologist [facility] Complement C4, S 25 14 - 40 mg/dL 07/07/2023 4:29 PM CDT [facility] Blood (Blood, Venous) 07/07/2023 11:22 AM CDT 07/07/2023 3:29 PM CDT Arthur Castorena M.D., Ph.D. LAB BLOOD ADD-O N Performing Organization Address [facility] Co de Phone Number [facility] [address] [place] [address] [facility] [address] [place] [address] * CRP (C-Reactive Protein) (07/07/2023 11:22 AM CDT) [facility] C-Reactive Protein (CRP), S <3.0 <5.0 mg/L 07/07/2023 12:20 PM CDT [facility] Blood (Blood, Venous) 07/07/2023 11:22 AM CDT 07/07/2023 11:53 AM CDT Iwona Garza LAB BLOOD ADD-ON Performing Organization Address City/[facility]/ZIP Co de Phone Number [facility] [address] [place] [address], [facility] [address] [place] [address] * LD (Lactate Dehydrogenase) (07/07/2023 11:22 AM CDT) Pathologist [facility] Lactate Dehydrogenase (LD), S 215 122 - 222 U/L 07/07/2023 12:20 PM CDT [facility] Blood (Blood, Venous) 07/07/2023 11:22 AM CDT 07/07/2023 11:53 AM CDT Arthur Castorena M.D., Ph.D. LAB BLOOD NON A DD-ON Performing Organization Address City/[facility]/ZIP Co de Phone Number [facility] [address] [place] [address], [facility] [address] [place] [address] * CK (Creatine Kinase) (07/07/2023 11:22 AM CDT) Pathologist [facility] Creatine Kinase (CK), S 48 26 - 192 U/L 07/07/2023 12:20 PM CDT [facility] Blood (Blood, Venous) 07/07/2023 11:22 AM CDT 07/07/2023 11:53 AM CDT Arthur Castorena M.D., Ph.D. LAB BLOOD ADD-O N [facility] [address] [place] [address], [facility] [address] [place] [address] * (ABNORMAL) Comprehensive Metabolic Panel (07/07/2023 11:22 AM CDT) Potassium, S 3.7 3.6 - 5.2 mmol/L [...] AM CDT Iwona Garza LAB BLOOD ADD-ON [facility] [address] [place] [address], [facility] DTH[facility] LaboratoriesD[facility] [address] [place] [address] * DX Hand Bilateral 3+ Views (07/07/2023 [...] to a few IP joints bilaterally. Iwona CowanSElaine [facility] DIAGNOSTIC SHAKIRA GING PROCEDURES * DX Foot [...] hammertoe deformities. Bilateral Achilles calcaneal spurs. Iwona DavidsonB.S. G DIAGNOSTIC SHAKIRA GING PROCEDURES * DX Sacroiliac [...] PROCEDURES from Last 3 Months Care Teams Dietitian Therapeutic Relationship Specialty Start Date End Date Elsewhere, Pcp PCP - General 04/18/19
--- OUTSIDE RECORDS SUMMARY | 2023-07-21 14:46 | XMS_ITS | Encounter Summary ---
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 [address] [place] [address] [facility] Referral ID Status Reason Start Date Expiration Date Visits Re quested Visits Authorized [id number] Closed 04/21/2023 04/20/2024 1 1 MEN * Outpatient (Routine) - Closed Specialty Diagnoses / Procedures Referred By Contac t Referred To Contact Diagnoses Polymyalgia Rheumatica (HCC) Procedures DX Hand Bilateral 3+ Views Iwona Bermudez M.B.B.S. [address] [place] [address] [facility] Referral ID Status Reason Start Date Expiration Date Visits Re quested Visits Authorized [id number] Closed 04/21/2023 04/20/2024 1 1 MEN * Outpatient (Routine) - Closed Specialty Diagnoses / Procedures Referred By Contac t Referred To Contact Diagnoses Polymyalgia Rheumatica (HCC) Procedures DX Sacroiliac Joints 3+ Views Iwona Bermudez M.B.B.S. [address] [place] [address] [facility] Referral ID Status Reason Start Date Expiration Date Visits Re quested Visits Authorized [id number] Closed 04/21/2023 04/20/2024 1 1 MEN Encounter Details Date Type Department Care Team ([facility] Contact Info) Description 04/21/2023 Orders Only Division of Rheumatology in [place], [place] [address] [place] [phone] Iwona Bermudez M.B.B.S. [address] [place] [phone] Polymyalgia Rheumatica (HCC) (Primary Dx) Social History [...] Encounters Date Type Department Care Team (Late Contact Info) Description 08/27/2023 2:00 PM CDT Comprehensive Visit Department of Dermatology in [place], [place] [address] [place] [phone] Digna Le M.D. [address] [place] [phone] documented as of this encounter Results * (ABNORMAL) Antinuclear Antibodies, HEp-2 Substrate, IgG, Serum (07/07/2023 11:22 AM CDT) Antinuclear Ab, HEp-2 Substrate, S Positive 1:160(A) <1:80 (Negativ e) 07/07/2023 8:57 PM CDT [facility] Comment: ----ADDITIONAL INFORMATION---- Method: Immunofluorescence using HEp-2 cellular substrate. MALLIKA Titer: 1:160 07/07/2023 8:57 PM CDT [facility] MALLIKA Pattern: Speckled 07/07/2023 8:57 PM CDT [facility] Blood (Blood, Venous) 07/07/2023 11:22 AM CDT 07/07/2023 3:42 PM CDT Iwona CowanSElaine LAB BLOOD ADD-ON [facility] [address] [place] [address] [facility] [address] [place] [address] * Cyclic Citrullinated Peptide Antibodies, IgG (07/07/2023 11:22 AM CDT) Cyclic Citrullinated Peptide Ab, S <15.6 <20.0 (Negative) U 07/07/2023 6:37 PM CDT [facility] Blood (Blood, Venous) 07/07/2023 11:22 AM CDT 07/07/2023 3:37 PM CDT Iwona CowanSElaine LAB BLOOD ADD-ON [facility] [address] [place] [address] [facility] [address] [place] [address] * Rheumatoid Factor (07/07/2023 11:22 AM CDT) Rheumatoid Factor, S <15 <15 IU/mL 07/08/2023 10:38 AM CDT [facility] Blood (Blood, Venous) 07/07/2023 11:22 AM CDT 07/08/2023 9:20 AM CDT Iwona Garza LAB BLOOD ADD-ON [facility] [address] [place] [address] [facility] [address] [place] [address] * (ABNORMAL) Comprehensive Metabolic Panel (07/07/2023 11:22 AM CDT) [facility] Potassium, S 3.7 3.6 - 5.2 [...] AM CDT 07/07/2023 11:53 AM CDT Iwona CowanSElaine LAB BLOOD ADD-ON Performing Organization Address City/[facility] Co de Phone Number [facility] [address] [place] [address] * CRP (C-Reactive Protein) (07/07/2023 11:22 AM CDT) C-Reactive Protein (CRP), S <3.0 <5.0 mg/L 07/07/2023 12:20 PM CDT [facility] Blood (Blood, Venous) 07/07/2023 11:22 AM CDT 07/07/2023 11:53 AM CDT Iwona CowanS. LAB BLOOD ADD-ON Performing Organization Address [facility] Co de Phone Number [facility] [address] [place] [address], [facility] [address] [place] [address] * Sedimentation Rate (07/07/2023 11:22 AM CDT) Sedimentation Rate, B 9 3 - 28 mm/h 07/07/2023 1:01 PM CDT [facility] Blood (Blood, Venous) 07/07/2023 11:22 AM CDT 07/07/2023 11:50 AM CDT Iwona CowanSElaine LAB BLOOD ADD-ON [facility] [address] [place] [address], [facility] DTL [facility] [address] [place] [address] * (ABNORMAL) CBC with Differential, Blood (07/07/2023 [...] AM CDT Iwona CowanSElaine LAB BLOOD ADD-ON [facility] [address] [place] [address], [place] DTL [facility] [address] [place] [address] DHPM [facility] [address] [place] [address] * DX Hand Bilateral 3+ Views (07/07/2023 [...] a few IP joints bilaterally. Iwona Moeller. IMG DIAGNOSTIC SHAKIRA GING PROCEDURES * DX Foot [...] deformities. Bilateral Achilles calcaneal spurs. Iwona DavidsonB.S. [facility] DIAGNOSTIC SHAKIRA GING PROCEDURES * DX Sacroiliac [...] change of the pubic symphysis.Vascular calcifications. Iwona DavidsonB.S. 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
--- OUTSIDE RECORDS SUMMARY | 2023-07-21 14:46 | XMS_ITS | Encounter Summary ---
Author Name Unknown Organization [facility] Address [address] [place] [address] Care Team Providers Care Pricing Specialist Name Role Phone Elsewhere, Pcp Primary Care Provider Unavailabl e Reason for Referral * Outpatient (Routine) - Authorized Specialty Diagnoses / Procedures Referred By Antonio perez Referred To Contact Dermatology Diagnoses Myalgia Arthur Castorena M.D., Ph.D. [address] [place] [address] [facility] Referral ID Status Reason Start Date Expiration Date V isits Requested Visits Authorized [id number] Authorized 07/07/2023 01/05/2025 1 1 Reason for Visit * Appointment Request (Routine) - Closed Specialty Diagnoses / Procedures Referred By Antonio perez Referred To Contact Rheumatology Diagnoses Polymyalgia Rheumatica (HCC) Laura Jiménez M.D. [address] [place] [address] Referral ID Status Reason Start Date Expiration Date Visits Re quested Visits Authorized [id number] Closed 04/20/2023 04/19/2024 1 1 Encounter Details Date Type Department Care Team (Latest Contact Info) Description 07/07/2023 8:30 AM CDT Comprehensive Visit Division of Rheumatology in [place], [place] [address] [place] [phone] Arthur Castorena M.D., Ph.D. [address] [place] [address] Myalgia (Primary Dx); Lupus Discoid Erythematosus; Rash; High Risk Medication Social History Tobacco Use Types Packs/Day Years Used Date Smoking Tobacco: Every Day [facility] Utilities Answer Date Recorded In the [...] Date Recorded Dental: Regular Dentist Yes 07/07/19 24 Employment Answer Date Recorded Employment status Employed and actively working without restrictions 07/07/2023 Housing Stability Answer Date Recorded What is your living situation today? [facility] to live 07/07/2023 Sex and Gender Information Value Date Recorded Sex Assigned at Female 07/07/2023 7:47 AM CDT Gender Identity Female 07/07/2023 7:47 AM CDT Sexual Orientation Straight 07/07/2023 7: 47 AM CDT documented as of this encounter Last Filed Vital Signs Vital Sign Reading [...] Mass Index 24.48 07/07/2023 8:29 AM CDT documented in this encounter Consult Notes * Anisha Bejarano M.D. - 07/07/2023 8:30 AM CDT SUBJECTIVE CHIEF COMPLAINT / REASON FOR CONSULT Bailee Maki is a 72 y.o. female who was referred by Laura Jiménez M.D. for evaluation of possible polymyalgia rheumatica. HISTORY OF PRESENT ILLNESS Mrs Maki is a very pleasant woman referred for the question of polymyalgia rheumatica. 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 She reports that generally she had no musculoskeletal symptoms at all in prior years leading up to last year. Around 2022, she began to feel pain at the posterior knees thatfelt muscular in nature. This was not too severe and she did not seek any evaluation at that time. However, by the time [place] came around, she would developed more diffuse aching throughout the muscles. This was most severe at the posterior thighs but also involving the anterior thighs, and most severe at the distal arm/forearms more so than the proximal arms. She specifically does not recallhaving shoulder or hip joint or periarticular region pain. No neck symptoms either. Recalls her symptoms at the legs being most functionally debilitating. Related to the pain, it was very difficult to stand up, walk up stairs, or get into a car. She notes that the pain was most severe the 2nd half of the night and into the morning. She does recall feeling very stiff or at least having a lot of difficulty with getting moving in the morning. She did not have any joint swelling. She did not have any pain at the hands or feet or any morning stiffness in these joints. She ultimately went to her primary care physician on April 07 for evaluation. She notes that hersymptoms seem to be somewhat less even prior to her being seen. The peak of symptoms was around Chanelle time. She had difficulty getting an appointment any sooner than April 07 She underwent testing on 04/07/2023 that included a positive HLA B27, normal CBC with differential outside of increased monocytes at 1.4 (0.9 upper limit of normal), rheumatoid factor negative, normal BMP with creatinine of 0.6, normal LFT, CRP elevated at 3.5 mg/dL (1.0 mg/dL upper limit of normal), normal CK. Per outside notes MALLIKA was also checked and negative.She was suspected to possibly have polymyalgia rheuma mode. She was started on prednisone 20 mg daily on 04/07/2023 for presumed polymyalgia. She notes that her symptoms seem to be markedly improved within a day or 2 at most. She was doing well at her follow-up appointment on April 15, so was recommended to reduce to 15 mg daily of prednisone. However, she noticed that almost immediately her symptoms worsened. She notes that they did not worsened to the severity of her symptoms prior to starting prednisone but were maybe 50% of this. She was then recommended to go up to 40 mg of prednisone which she believes she was on for a few weeks, then brought down to 20 mg for a few weeks, and then brought down to 15 mg about 3 weeks ago. She notes that her symptoms are largely improved. There is some slight achiness and tenderness of her muscles particularly at the thighs, but largely she feels normal. She recalls significant tenderness prior to the prednisone of her muscles. She can not recall if she had much weakness, but notes that possibly she was a bit weak prior to prednisone. She is uncertain whether moving her joints and muscles of the shoulders and hips was very painful prior to the prednisone. Prior to starting prednisone, she was having unintended weight loss. Her weight has largely been 155 lb for most of her adulthood, and had dropped to 141 lb. She has gained weight back with being on prednisone. She has not had any fevers. She was having some mild sweating at night prior to prednisone, but now is having drenching night sweats while on prednisone. This maybe getting a bit better with lowering the dose of prednisone. She does not endorse any bone pain. She has not had any,jaw pain/claudication, headaches, scalp or voodoo t tenderness, voodoo swelling, claudication, visual changes including double vision or transient visual loss, oral or nasal sores, pleuritic or other chest pain, numbness or tingling, ongoing weakness, history of pleurisy or pericarditis, history of seizure,blood clots, or miscarriage. She denies Raynaud's. Denies dry eyes. Some dry mouth. No glandular swelling. Regarding her other medical comorbidities. She has a history of squamous cell carcinoma treated with Mohs surgery. She also has a history of basal cell carcinoma excised. She has followed with Dermatology in the past, but has not seen them for at least likely a year. Her prior drawing box tender retired. She notes that generally she has not required ongoing biopsies or treatments for skin cancer, so did not feel this was necessary to schedule recently. She also has a history of biopsy-proven discoid lupus that has been treated with Plaquenil. She is running low on plaquenil and would like to stop this. Her discoid lupus was active prior to startingprednisone therapy for the muscular symptoms in March. She notes the rash often affects the back,scalp, chest, upper anterior chest and face. In the last year, she has also developed diffuse erythema of the fingers, overlying and distal to the MCP joints, along with palmar erythema. She says her last drawing box tender told her this was anothertype of lupus and was not otherwise concerned. She notes no recent change in the appearance of her hands. No other new rashes. She does have chronic dryness appearance of the hands, particularly palm side and on the lateral and medial digits, and some fissures, and also this has been more long standing and not unusual. She has not had malar area rash, eyelid rash or swelling. She denies any cough or dyspnea with exertion. She has had a lung cancer screening low dose chest CT done fairly recently that showed some benign appearing nodules, report not available but this was what she was told. Previous Reports Reviewed:historical medical records, lab reports, office notes, and outside records Family history notable for SLE in her daughter. There is otherwise no autoimmune disease in her family Social history: Current smoker, 40 pack year history. 14 alcoholic drinks per week REVIEW OF SYSTEMS Pertinent positives and negatives as documented in the above history of present illness. REVIEW OF SYSTEMS OBJECTIVE PHYSICAL EXAM Physical Exam Vascular Exam Temporal Right Pulse: Normal Left Pulse: Normal Right Tender: No Left Tender: No Carotid Right Pulse: Normal Left Pulse: Normal Right Tender: No Left Tender: No Right Bruit: No Left Bruit: No Subclavian Right Bruit: No Left Bruit: No Radial Right Pulse: Normal Left Pulse: Normal Abdomen Right Bruit: No Left Bruit: No Femoral Right Pulse: Normal Left Pulse: Normal Right Bruit: No Left Bruit: No Best pedal Right Pulse: Reduced Left Pulse: Reduced Her aortic stenosis murmur radiates to the carotid and is also heard at subclavian region General: Alert, oriented, appropriate affect, no apparent distress. Pleasant, conversive, well appearing. Normal muscle bulk Skin: There is red, slightly edematous look to the skin overlying the MCP and extending distally atall digits. There is not sclerodactyly or puffy fingers. Palmar erythema bilaterally. Dry, scaley appearance of skin on palmar side of the hands/digits, few areas with mild fissuring. No calcinosis. Acrocyanosis of the feet. No vasculitic rash. No rheumatoid nodules. Eyes: Clear conjunctivae and lids. PERRL. EOMI. Patchy scleral injection Ear, Nose and Throat: Moist oral mucosa without mucositis. No oral or nasal ulcers. No enlargement of the submandibular or parotid glands noted. Lymph: No cervical, preauricular, submandibular, or supraclavicular adenopathy. Heart: Regular rate, regular rhythm. Loud systolic murmurs Lungs: somewhat reduced breath sounds throughout (somewhat muted) but Clear to auscultation bilaterally. No wheezing, rhonchi, or crackles Abdomen: No tenderness or abdominal distension Vessels: No edema noted Spine: No midline spine tenderness. Neuro: Appropriate gait for age. Proximal and distal strength in the upper and lower extremities isintact at deltoids, biceps, triceps, wrist flexor and extensor, finger abduction, hip flexion, kneeextension and flexion, ankle dorsiflexion and plantarflexion. Joints: No tender joints. No synovitis of the upper and lower extremities including hands, wrists, elbows, knees, ankles or feet bilaterally. Range of motion of the extremities including shoulder andhips are within functional limits bilaterally. 07/07/2023 Tender joint count (0-28) 0 Swollen joint count (0-28) 0 Patient global assessment (0-100) -- Pump Machine Operator global assessment (0-100) -- ESR (mm/h) -- CRP (mg/L) -- Disease Activity Score 28 using ESR ([id number]) -- Disease Activity Score 28 using CRP (RHQ16-YOE) -- Clinical Disease Activity Index (CDAI) -- Simplified Disease Activity Index (SDAI) -- ASSESSMENT / PLAN Mrs Maki is a very pleasant woman referred for the question of polymyalgia rheumatica. 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 It was a pleasure meeting with Mrs. Maki today. Her provided clinical history of symptoms is atypical for polymyalgia rheumatica. She really does not recall any shoulder symptoms and identifies predominantly muscle rather than articular or periarticular symptoms. Her clinical history is also not in fitting with any HLA B27 associated arthritis. At the present time on prednisone, there are not any signs of an active inflammatory arthritis. She has an underlying history of cutaneous lupus (discoid predominantly but some recent hand rashes as well that have been attribute to lupus) and in the context of new inflammatory type musculoskeletal symptoms, we would like to complete some additionalassessments for presence of a systemic connective tissue disease. 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 We will also complete some basic infectious screening and thyroid testing in the context of recent night sweats and as abnormalities in these can also be a cause of palmar erythema. We'd like to obtain her outside chest CT both to ensure there are not signs for interstitial lung disease (as can be seen with CTD) or any other concerns on this (lymphadenopathy, etc). It is important for her to re establish with dermatology both for an updated skin cancer screening and we'd like them to also assess her new hand rash/erythema. If her evaluation returns unremarkable (no erosive signs on radiographs or signs of sacroiliitis) and her blood work is also unremarkable, then we may treat as polymyalgia rheumatica with gradual steroid taper. It is important to note though that polymyalgia like syndromes can result as a paraneoplastic phenomenon. Additional evaluation for an alterna tive process to polymyalgia may be appropriate depending on her clinical course with prednisone tapering. She will have a follow up visit with rheumatology on Thursday to review her results. We will detail aplan for tapering prednisone. It would be recommended to intermittently monitor her inflammatory markers (on a monthly basis at least as prednisone is tapered AND to check these if concern for flare arises based on symptoms prior to making prednisone adjustments. She should be on vitamin d and calcium and have an updated DEXA scan done. #1 Myalgia, improved on prednisone, workup pending #2 Elevated CRP #3 Discoid lupus #4 Palmar and digit erythema, concerning for CTD-related rash (such as DM) #2 Current smoking - plan for CMP, CBC with differential, rheumatoid factor, anti CCP antibody, ESR and CRP - CK (Creatine Kinase); Future; Expected date: 07/07/2023 - Aldolase; Future; Expected date: 07/07/2023 - Thyroid Function [place]; Future; Expected date: 07/07/2023 - Complement C3; Future; Expected date: 07/07/2023 - Complement C4; Future; Expected date: 07/07/2023 - Antibody to Extractable Nuclear Antigen Evaluation; Future; Expected date: 07/07/2023 - LD (Lactate Dehydrogenase); Future; Expected date: 07/07/2023 - HIV-1/-2 Ag and Ab Screen, Plasma; Future; Expected date: 07/07/2023 - HBs Antibody, Serum; Future; Expected date: 07/07/2023 - Hepatitis Be Ag and Ab; Future; Expected date: 07/07/2023 - Hepatitis B Surface Antigen; Future; Expected date: 07/07/2023 - HBc Total Ab, Serum; Future; Expected date: 07/07/2023 - HCV Ab w/Reflex to HCV PCR, Serum; Future; Expected date: 07/07/2023 - QuantiFERON-Tb Gold Plus, Blood; Future; Expected date: 07/07/2023 - Dermatology - Connective tissue consult (clinic); Future; Expected date: 07/07/2023 - MyoMarker 3 Plus Profile - Sent Out Lab; Future; Expected date: 07/07/2023 - If she does not see dermatology here, it is very important that she establish locally. We would appreciate drawing box tender perspective on her erythematous hand rash in particular. She also requires afull skin cancer screening evaluation - hand, feet, sacroiliac x-rays are planned - she will meet back with Dr. Castorena on Thursday to review her results and outlined a prednisone taper plan. Additional evaluations maybe come appropriate depending on the success of her prednisone tapering. Recommend vitamin-D 1000 International Unit daily and calcium, 1200 mg daily between diet andsupplement for prevention of glucocorticoid induced osteoporosis. Recommend updating DEXA if not done already FOLLOW-UP Long-term management and follow-up: She will meet back with Dr. Castorena on Thursday. Rheumatology-related medications: No rheumatology-related medications were prescribed at this visit. Disease flares or relapse: to be decided in follow up Associated attestation - Arthur Castorena M.D., Ph.D. - 07/07/2023 1:43 PM CDT I saw and evaluated the patient, participating in the monroy portions of the service. I reviewed the resident/fellow???s note. I agree with the resident/fellow???s findings and plan. 72 year old with history of discoid [...] able to taper down to 15 mg. - obtain CBC, CMP, ESR, CRP, aldolase, CK, MyoMarker panel, hep panel, QuantiFERON, HIV, LD, C3, C4, KANDICE - see dermatology for assessment of skin changes and concern for possible dermatomyositis - continue slow prednisone taper and see if symptoms return - Recommend vitamin-D 1000 International Unit daily and calcium, 1200 mg daily between diet and supplement for prevention of glucocorticoid induced osteoporosis. Recommend updating DEXA if not done already * Arthur Castorena M.D., Ph.D. - 07/07/2023 8:30 AM CDT I saw and evaluated the patient, participating in the monroy portions of the service. I reviewed the resident/fellow???s note. I agree with the resident/fellow???s findings and plan. 72 year old with history of discoid [...] able to taper down to 15 mg. - obtain CBC, CMP, ESR, CRP, aldolase, CK, MyoMarker panel, hep panel, QuantiFERON, HIV, LD, C3, C4, KANDICE - see dermatology for assessment of skin changes and concern for possible dermatomyositis - continue slow prednisone taper and see if symptoms return - Recommend vitamin-D 1000 International Unit daily [...] will see her local primary care provider. BILLING I spent a total of 71 minutes with the patient. The time spent counseling and coordinating care wasgreater than 50% of the total time. documented in this encounter Plan of Treatment Upcoming Encounters Date Type Department Care Team (Late st Contact Info) Description 08/27/2023 2:00 PM CDT Comprehensive Visit Department of Dermatology in [place], [place] [address] [place] [address] Digna Le M.D. [address] [place] [address] Scheduled Orders Name Type Priority Associated Diagnoses Orde r Schedule MyoMarker 3 Plus Profile - Sent Out Lab Lab Routine Myalgia Expected: 07/07/2023, Expires: 10/05/2024 Scheduled Referrals Name Type Priority Associated Diagnoses Order Schedule Dermatology - Connective tissue consult (clinic) Outpatient Referral Routine Myalgia Expected: 07/07/2023, Expires: 10/05/2024 documented as of this encounter Results * QuantiFERON-Tb Gold Plus, Blood (07/07/2023 11:22 AM CDT) [facility] QuantiFERON-TB Gold Plus Result Negative Negative 07/08/2023 11:19 AM CDT [facility] Comment: No interferon-gamma response to M. tuberculosis [...] Result 10.00 IU/mL 07/08/2023 11:19 AM CDT [facility] Nil Result 0.00 IU/mL 07/08/2023 11:19 AM CDT [facility] Blood (Blood, Venous) 07/07/2023 11:22 AM CDT 07/07/2023 2:00 PM CDT Narrative [facility] - 07/08/2023 11:19 AM CDT Specimen Information: Specimen ID: [id number] Specimen Type: Blood Specimen Collection Start Date: 07/07/2023 11:22 AM Specimen Received Date: 07/07/2023 ??2:00 PM Specimen ID: [id number] Specimen Type: Blood Specimen Collection Start Date: 07/07/2023 11:22 AM Specimen Received Date: 07/07/2023 ??2:00 PM Specimen ID: [id number] Specimen Type: Blood Specimen Collection Start Date: 07/07/2023 11:22 AM Specimen Received Date: 07/07/2023 ??2:00 PM Specimen ID: [id number] Specimen Type: Blood Specimen Collection Start Date: 07/07/2023 11:22 AM Specimen Received Date: 07/07/2023 ??2:00 PM Arthur Castorena M.D., Ph.D. LAB MICROBIOLOG Y - BLOOD ORDERABLES [address] [place] [address] [place] [address] * HCV Ab w/Reflex to HCV PCR, Serum (07/07/2023 11:22 AM CDT) HCV Ab, S Negative Negative 07/07/2023 9:20 PM CDT [facility] Comment:Fkiakr-si-zxrsak rat io is <1.00. Blood (Blood, Venous) 07/07/2023 11:22 AM CDT 07/07/2023 5:00 PM CDT Arthur Castorena M.D., Ph.D. LAB MICROBIOLOG Y - BLOOD ORDERABLES Performing Organization Address City/[facility]/ZIP Co de Phone Number [facility] [address] [place] [address] [facility] [address] [place] [address] * HBc Total Ab, Serum (07/07/2023 11:22 AM CDT) HBc Total Ab, S Negative Negative 07/07/2023 9:25 PM CDT [facility] Blood (Blood, Venous) 07/07/2023 11:22 AM CDT 07/07/2023 5:00 PM CDT Arthur Castorena M.D., Ph.D. LAB MICROBIOLOG Y - BLOOD ORDERABLES Performing Organization Address [facility] Co de Phone Number [facility] [address] [place] [address] [facility] [address] [place] [address] * Hepatitis B Surface Antigen (07/07/2023 11:22 AM CDT) Pathologist [facility] HBs Antigen, S Negative Negative 07/07/2023 9:02 PM CDT [facility] Blood (Blood, Venous) 07/07/2023 11:22 AM CDT 07/07/2023 5:00 PM CDT Arthur Castorena M.D., Ph.D. LAB MICROBIOLOG Y - BLOOD ORDERABLES Performing Organization Address City/[facility]/ZIP Co de Phone Number [facility] [address] [place] [address] [facility] [address] [place] [address] * Hepatitis Be Ag and Ab (07/07/2023 11:22 AM CDT) Hepatitis Be Ag, S Negative Negative 07/07/2023 9:07 PM CDT [facility] HBe Antibody, S Negative Negative 07/07/2023 9:23 PM CDT [facility] Blood (Blood, Venous) 07/07/2023 11:22 AM CDT 07/07/2023 5:00 PM CDT Arthur Castorena M.D., Ph.D. LAB MICROBIOLOG Y - BLOOD ORDERABLES Performing Organization Address [facility] de Phone Number [facility] [address] [place] [address] [facility] [address] [place] [address] * HBs Antibody, Serum (07/07/2023 11:22 AM CDT) HBs Antibody, S Negative 07/07/2023 9:24 PM CDT [facility] Comment: Patient is presumed to be not immune to infection with HBV. ----REFERENCE VALUE---- Unvaccinated: Negative Vaccinated: Positive HBs Antibody, Quantitative, S <5.0 mIU/mL 07/07/2023 9:24 PM CDT [facility] Comment: ----REFERENCE VALUE---- Unvaccinated: <5.0 Vaccinated: >=12.0 Blood (Blood, Venous) 07/07/2023 11:22 AM CDT 07/07/2023 5:00 PM CDT Arthur Castorena M.D., Ph.D. LAB MICROBIOLOG Y - BLOOD ORDERABLES Performing Organization Address [facility] de Phone Number [facility] [address] [place] [address] [facility] [address] [place] [address] * HIV-1/-2 Ag and Ab Screen, Plasma (07/07/2023 11:22 AM CDT) Pathologist [facility] HIV-1/-2 Ag and Ab Screen, P Negative Negative 07/07/2023 4:24 PM CDT [facility] Comment: Negative result does not rule out HIV infection. If exposure to HIV infection occurred <14 days ago, contact the laboratory to request addition of HIV-1/HIV-2 RNA detection, Plasma (HIP12). Blood (Blood, Venous) 07/07/2023 11:22 AM CDT 07/07/2023 3:33 PM CDT Arthur Castorena M.D., Ph.D. LAB MICROBIOLOG Y - BLOOD ORDERABLES Performing Organization Address City/[facility]/ZIP Co de Phone Number [facility] [address] [place] [address] [facility] [address] [place] [address] * LD (Lactate Dehydrogenase) (07/07/2023 11:22 AM CDT) Lactate Dehydrogenase (LD), S 215 122 - 222 U/L 07/07/2023 12:20 PM CDT [facility] Blood (Blood, Venous) 07/07/2023 11:22 AM CDT 07/07/2023 11:53 AM CDT Arthur Castorena M.D., Ph.D. LAB BLOOD NON A DD-ON Performing Organization Address City/[facility]/ZIP Co de Phone Number [facility] [address] [place] [address], [facility] [address] [place] [address] * Antibody to Extractable Nuclear Antigen Evaluation (07/07/2023 11:22 AM CDT) SS-A/Ro Ab, IgG, S 0.2 <1.0 (Negative) U 07/07/2023 5:10 PM CDT SD[facility] SS-B/La Ab, IgG, S <0.2 <1.0 (Negative) U 07/07/2023 5:10 PM CDT [facility] Sm Ab, IgG, S <0.2 <1.0 (Negative) U 07/07/2023 5:10 PM CDT [facility] WEIGH MACHINE OPERATOR Ab, IgG, S 0.5 <1.0 (Negative) U 07/07/2023 5:10 PM CDT [facility] Scl 70 Ab, IgG, S <0.2 <1.0 (Negative) U 07/07/2023 5:10 PM CDT [facility] Karishma 1 Ab, IgG, S <0.2 <1.0 (Negative) U 07/07/2023 5:10 PM CDT [facility] Blood (Blood, Venous) 07/07/2023 11:22 AM CDT 07/07/2023 4:06 PM CDT Arthur Castorena M.D., Ph.D. LAB BLOOD ADD-O N [facility] [address] [place] [address] [facility] [address] [place] [address] * Complement C4 (07/07/2023 11:22 AM CDT) Complement C4, S 25 14 - 40 mg/dL 07/07/2023 4:29 PM CDT [facility] Blood (Blood, Venous) 07/07/2023 11:22 AM CDT 07/07/2023 3:29 PM CDT Arthur Castorena M.D., Ph.D. LAB BLOOD ADD-O N Performing Organization Address City/[facility]/ZIP Co de Phone Number [facility] [address] [place] [address] [facility] [address] [place] [address] * Complement C3 (07/07/2023 11:22 AM CDT) Complement C3, S 112 75 - 175 mg/dL 07/07/2023 4:29 PM CDT [facility] Blood (Blood, Venous) 07/07/2023 11:22 AM CDT 07/07/2023 3:29 PM CDT Arthur Castorena M.D., Ph.D. LAB BLOOD ADD-O N [facility] [address] [place] [address] [facility] [address] [place] [address] * Thyroid Function [place] (07/07/2023 11:22 AM CDT) Pathologist [facility] TSH, Sensitive 1.7 0.3 - 4.2 mIU/L 07/07/2023 12:20 PM CDT DTL Blood (Blood, Venous) 07/07/2023 11:22 AM CDT 07/07/2023 11:53 AM CDT Arthur Castorena M.D., Ph.D. LAB BLOOD ADD-O N Performing Organization Address City/[facility]/ZIP Co de Phone Number [facility] [address] [place] [address], [facility] [address] [place] [address] * Aldolase (07/07/2023 11:22 AM CDT) Pathologist [facility] Aldolase, S 5.5 <7.7 U/L 07/07/2023 2: 09 PM CDT DT Blood (Blood, Venous) 07/07/2023 11:22 AM CDT 07/07/2023 1:30 PM CDT Arthur Castorena M.D., Ph.D. LAB BLOOD NON A DD-ON Performing Organization Address City/[facility]/ZIP Co de Phone Number [facility] [address] [place] [address], [facility] [address] [place] [address] * CK (Creatine Kinase) (07/07/2023 11:22 AM CDT) Pathologist [facility] Creatine Kinase (CK), S 48 26 - 192 U/L 07/07/2023 12:20 PM CDT DTL Blood (Blood, Venous) 07/07/2023 11:22 AM CDT 07/07/2023 11:53 AM CDT Arthur Castorena M.D., Ph.D. LAB BLOOD ADD-O N [facility] [address] [place] [address], [facility] [address] [place] [address] documented in this encounter Visit Diagnoses Diagnosis Myalgia- Primary Lupus Discoid Erythematosus Rash High Risk Medication Polymyalgia Rheumatica (HCC) Myalgia documented in this encounter Care Teams Pricing Specialist Relationship Specialty Start Date End Date Elsewhere, Pcp PCP - General 04/18/19 documented as of this encounter
--- OUTSIDE RECORDS SUMMARY | 2023-07-21 14:46 | XMS_ITS | Encounter Summary ---
Author Name Unknown Organization [facility] Address [address] [place] [address] Care Team Providers Care Sewer Line Photo Inspector Name Role Phone Elsewhere, Pcp Primary Care Provider Unavailabl e Reason for Referral * Outpatient (Routine) - Closed Specialty Diagnoses / Procedures Referred By Contac t Referred To Contact Diagnoses Polymyalgia Rheumatica (HCC) Procedures DX Foot Bilateral 3+ Views Iwona Bermudez M.B.B.S. 200 [place] [address] [facility] Referral ID Status Reason Start Date Expiration Date Visits Re quested Visits Authorized [id number] Closed 04/21/2023 04/20/2024 1 1 * Outpatient (Routine) - Closed Specialty Diagnoses / Procedures Referred By Contac t Referred To Contact Diagnoses Polymyalgia Rheumatica (HCC) Procedures DX Sacroiliac Joints 3+ Views Iwona Bermudez M.B.B.S. 200 [place] [address] [facility] Referral ID Status Reason Start Date Expiration Date Visits Re quested Visits Authorized [id number] Closed 04/21/2023 04/20/2024 1 1 Reason for Visit * Outpatient (Routine) - Closed Specialty Diagnoses / Procedures Referred By Contac t Referred To Contact Diagnoses Polymyalgia Rheumatica (HCC) Procedures DX Foot Bilateral 3+ Views Iwona Bermudez M.B.B.S. [address] [place] [address] [facility] Referral ID Status Reason Start Date Expiration Date Visits Re quested Visits Authorized [id number] Closed 04/21/2023 04/20/2024 1 1 Encounter Details Date Type Department Care Team (Latest Contact Info) Description 07/07/2023 9:58 AM CDT - 07/07/2023 11:05 AM CDT Hospital Encounter Department of Radiology, [facility], in [place], [place] [address] [place] [phone] Iwona Bermudez M.B.B.S. [address] [place] [phone] Polymyalgia Rheumatica (HCC) Discharge Disposition: Home or Self Care Social History Tobacco Use Types Packs/Day Years Used Date Smoking Tobacco: Every Day [facility] Utilities Answer Date Recorded In the past 12 months has th [employer], gas, oil, or water [employer] threatened to shut off services in your [...] your living situation today? I have a [facility] place to live 07/07/2023 Sex and [...] CDT Comprehensive Visit Department of Dermatology in [place], [place] 200 [place] [address] Digna Le M.D. 200 [place] [address] documented as of this encounter Procedures Procedure Name Priority Date/Time Associated Diagnosis Comments DX FOOT BILATERAL 3+ VIEWS RAD - Routine (most inpatients and all outpatients) 07/07/2023 10:27 AM CDT Polymyalgia Rheumatica (HCC) DX SACROILIAC JOINTS 3+ VIEWS RAD - Routine (most inpatients and all outpatients) 07/07/2023 10:27 AM CDT Polymyalgia Rheumatica (HCC) documented in this encounter Results * DX Foot Bilateral 3+ Views (07/07/2023 [...] hammertoe deformities. Bilateral Achilles calcaneal spurs. Iwona Garza IMG DIAGNOSTIC SHAKIRA GING PROCEDURES * DX Sacroiliac [...] of the pubic symphysis.Vascular calcifications. Iwona Garza IMRich DIAGNOSTIC SHAKIRA GING PROCEDURES documented in this encounter Visit Diagnoses Diagnosis Polymyalgia Rheumatica (HCC) documented in this encounter Care Teams Sewer Line Photo Inspector Relationship Specialty Start Date End Date Elsewhere, Pcp PCP - General 04/18/19 documented as of this encounter
--- NOTE | 2023-07-21 15:00 | MM_ITS ---
Patient: DIA MCCLAIN Facility:?[facility] Patient ID:?[id number] Site Patient ID:?[id number]. Site :?[id number] Study:?XRay-Breast Bilateral 3D W/CAD-07/21/2023 3:39:39 PM Ordering Physician:Juliann Final Report: BILATERAL SCREENING MAMMOGRAM WITH COMPUTER-AIDED DETECTION AND TOMOSYNTHESIS TECHNIQUE: CC and MLO views were obtained. These mammographic images have been obtained using full-field digital technique. These mammographic images were interpreted with the benefit of computer-aided detection. Breast Tomosynthesis was used in this interpretation. COMPARISON FILM: 07/09/22, 05/02/21, 04/02/20. FINDINGS: There are scattered areas of fibroglandular density. IMPRESSION: There is no radiographic evidence for malignancy. ASSESSMENT: BI-RADS Category 2: Benign RECOMMENDATION: Routine screening mammogram in 1 year. A lay language report of this examination will be provided to the patient. Víctor Reina M.D. Diagnostic Radiologist [email or web address] DSM/sp R& Transcribed: 5:53 p.m. SP/Dictated by: Víctor Reina MD @ 07/23/2023 9:57:00 AM Signed by:?Víctor Reina MD @07/24/2023 11:26:34 AM (Electronic Signature)
== END 2023-07-21 14:43 | disposition home or self-care (01) ==
LOC: MAMMO 14:43
PROVIDERS: PCP Family Medicine; Visit Provider Family Medicine
DX: Z12.31 Encounter for screening mammogram for malignant neoplasm of breast (principal)
CPT/HCPCS: 77063; 77067

== ENCOUNTER 2023-10-29 10:34 | Outpatient (CLI) | payer OTHER, SELFPAY ==
--- OUTSIDE RECORDS SUMMARY | 2023-10-29 10:38 | XMS_ITS | Clinical Summary ---
Author Organization [facility] Address [address] [place] [address] Care Team Providers Care Clay Puddler Name Role Phone Elsewhere, Pcp Primary Care Provider Unavailabl e Source Comments Patient records contain information from all sites at [facility]. For routine questions regarding patient records, call [phone] during business hours, M-F 8:00 AM - 5:00 PM Central Time. Record requests for emergency care only can be directed to [phone] at any time.[facility] Medications Medication Sig Dispensed Refills Start Date End Date Status alendronate (FOSAMAX) 70 mg tablet Take 1 tablet by mouth once a week. 06/20/2016 Active hydroCHLOROthiazide (HYDRODIURIL) 25 mg tablet Take 1 tablet by mouth daily. 06/20/2016 Active lisinopriL (PRINIVIL,ZESTRIL) 30 mg tablet Take 1 tablet by mouth daily. 01/02/2011 Active simvastatin (ZOCOR) 10 mg tablet Take 2 tablets by mouth at bedtime. 06/20/2016 Active calcium carbonate-vitamin D3 (Calcium 600 with Vitamin D3) 600 mg-10 mcg (400 unit) tablet,chewable Chew 1 tablet daily. Active cholecalciferol, vitamin D3, (cholecalciferol) 25 mcg (1,000 Unit) tablet Take 50 mcg by mouth daily. Active hydroxychloroquine (PLAQUENIL) 200 mg tablet Take 200 mg by mouth Titrated. Active predniSONE (DELTASONE) 1 mg tabletIndications:P olymyalgia Rheumatica (HCC) Take 9 tablets (9 mg [...] 21 days. 945 tablet 07/15/2023 01/20/2024 Active Active Problems No known active problems Encounters Date Type Department Care Team Description 10/15/2023 Clinical Communication Division of Rheumatology in [place], [place] [address] [place] [address] Arthur Castorena M.D., Ph.D. from Last 3 Months Immunizations Name Administration Dates Next Due PPSV23 05/02/2003 Social History Tobacco Use Types Packs/Day Years Used Date Smoking Tobacco: Every Day [facility] Utilities Answer Date Recorded In the past 12 months has th e [employer], [employer], oil, or water [employer] threatened to shut off services in your [...] your living situation today? I have a [facility] place to live 07/07/2023 Sex and [...] 07/07/2023 8:29 AM CDT Plan of Treatment Health Maintenance Due Date Last Done Comments Bone Density Scan (Osteoporo sis Screen) 1950 CT Colonography 1950 Cologuard 1950 Colonoscopy 1950 Colorectal Cancer Screening 1950 FIT 1950 Mammogram 1950 Tobacco Cessation counseling 1950 COVID-19 Vaccine (2022-2 4 season) 2023 01/16/2023, 02/03/2022, 10/21/2021, Additional history exists Depression Screening (Annual PHQ-2) 03/30/2023 Fall Risk Screen (Annual) 03/30/2023 Influenza Vaccine (#1) 2023 , 01/23/2022, 03/13/2021, Additional history exists Creatinine Level (Kidney Fun ction Test) 07/06/2024 07/07/2023 Potassium Level 07/06/2024 07/07/2023 Sodium Level 07/06/2024 07/07/2023 Fasting Glucose for Diabetes Screening 07/06/2026 07/07/2023 DTaP,Tdap,and Td Vaccines (3 - Td or Tdap) 03/15/2030 03/15/2020, 08/31/2009 Pneumococcal vaccine (65+ years) Completed 03/04/2017, 01/09/2015, 05/02/2003 Zoster Vaccines Completed 10/12/2019, 02/27, 03/10/2019, Additional history exists Procedures Procedure Name Priority Date/Time Associated Diagnosis Comments COMPREHENSIVE METABOLIC PANEL, S/P Routine 07/07/2023 11:22 AM CDT Polymyalgia Rheumatica (HCC) from Last 3 Months or Most Recently Relevant to Health Maintenance Results * (ABNORMAL) Comprehensive Metabolic Panel (07/07/2023 11:22 [...] AM CDT Iwona Garza LAB BLOOD ADD-ON [facility] [address] [place] [address], [facility] [address] [place] [address] from Last 3 Months or Most Recently Relevant to Health Maintenance Care Teams Clay Puddler Relationship Specialty Start Date End Date Elsewhere, Pcp PCP - General 04/18/19
--- OUTSIDE RECORDS SUMMARY | 2023-10-29 10:38 | XMS_ITS | Referral Summary ---
Author Organization [facility] Address [address] [place] [address] Care Team Providers Care Sex Therapist Name Role Phone Elsewhere, Pcp Primary Care Provider Unavailabl e Source Comments Patient records contain information from all sites at [facility]. For routine questions regarding patient records, call [phone] during business hours, M-F 8:00 AM - 5:00 PM Central Time. Record requests for emergency care only can be directed to [phone] at any time.[facility] Encounters Date Type Department Care Team Description 10/15/2023 Clinical Communication Division of Rheumatology in [place], [place] [address] [place] [address] Arthur Castorena M.D., Ph.D. from Last 3 Months Medications Medication Sig [...] Active Active Problems No known active problems Immunizations Name Administration Dates Next Due PPSV23 05/02/2003 Social History Tobacco Use Types Packs/Day Years Used Date Smoking Tobacco: Every Day [facility] Utilities Answer Date Recorded In the past 12 months has th e [employer], [employer], or water [employer] threatened to shut off services in your [...] your living situation today? I have a [facility] place to live 07/07/2023 Sex and [...] 07/07/2023 8:29 AM CDT Plan of Treatment Not on file Procedures Procedure Name Priority Date/Time Associated Diagnosis [...] AM CDT Iwona Garza LAB BLOOD ADD-ON [facility] [address] [place] [address], [facility] DTL [facility] [address] [place] [address] from Last 3 Months or Most Recently Relevant to Health Maintenance Care Teams Sex Therapist Relationship Specialty Start Date End Date Elsewhere, Pcp PCP - General 04/18/19
--- OUTSIDE RECORDS SUMMARY | 2023-10-29 10:39 | XMS_ITS ---
Author Organization [facility] Address [address] [place] [address] Care Team Providers Care Back Order Clerk Name Role Phone Unavailable Unavailable Unavailable Surgery Details Not on file Complications Check Surgery Details section. Procedure Estimated Blood Loss Check Surgery Details section. Procedure Findings Check Surgery Details section. Procedure Specimens Taken Check Surgery Details section.
--- OUTSIDE RECORDS SUMMARY | 2023-10-29 10:39 | XMS_ITS | Encounter Summary ---
Author Organization [facility] Address [address] [place] [address] Care Team Providers Care Hand Gluer And Slicer Name Role Phone Elsewhere, Pcp Primary Care Provider Unavailabl e Reason for Visit * Reason Onset Date Comments Med Question 07/15/2023 Encounter Details Date Type Department Care Team (Latest Contact Info) Description 07/15/2023 Clinical Communication Division of Rheumatology in [place], [place] [address] [place] [phone] Arthur Castorena M.D., Ph.D. [address] [place] [phone] Med Question Social History Tobacco Use Types Packs/Day Years Used Date Smoking Tobacco: Every Day [facility] Utilities Answer Date Recorded In [...] your living situation today? I have a [facility] place to live 07/07/2023 Sex and Gender Information Value Date Recorded Sex Assigned at Female 07/07/2023 7:47 AM CDT Gender Identity Female 07/07/2023 7:47 AM CDT Sexual Orientation Straight 07/07/2023 7: 47 AM CDT documented as of this encounter Plan of Treatment Not on file documented as of this encounter Visit Diagnoses Not on filedocumented in this encounter Care Teams Hand Gluer And Slicer Relationship Specialty Start Date End Date Elsewhere, Pcp PCP - General 04/18/19 documented as of this encounter
--- OUTSIDE RECORDS SUMMARY | 2023-10-29 10:39 | XMS_ITS | Encounter Summary ---
Author Organization [facility] Address [address] [place] [address] Care Team Providers Care Batch Roller Operator Name Role Phone Elsewhere, Pcp Primary Care Provider Unavailabl e Encounter Details Date Type Department Care Team (Late st Contact Info) Description 10/15/2023 Clinical Communication Division of Rheumatology in [place], [place] [address] [place] [phone] Arthur Castorena M.D., Ph.D. [address] [place] [address] Social History Tobacco Use Types Packs/Day Years Used Date Smoking Tobacco: Every Day [facility] Utilities Answer Date Recorded In the [...] your living situation today? I have a [facility] place to live 07/07/2023 Sex and Gender Information Value Date Recorded Sex Assigned at Female 07/07/2023 7:47 AM CDT Gender Identity Female 07/07/2023 7:47 AM CDT Sexual Orientation Straight 07/07/2023 7: 47 AM CDT documented as of this encounter Plan of Treatment Not on file documented as of this encounter Visit Diagnoses Not on filedocumented in this encounter Care Teams Batch Roller Operator Relationship Specialty Start Date End Date Elsewhere, Pcp PCP - General 04/18/19 documented as of this encounter
== END 2023-10-29 10:35 | disposition home or self-care (01) ==
PROVIDERS: PCP Family Medicine; Visit Provider Family Medicine
DX: R60.0 Localized edema (principal); M35.3 Polymyalgia rheumatica; M81.0 Age-related osteoporosis without current pathological fracture; R52 Pain, unspecified
CPT/HCPCS: 80053; 84443; 86140

== ENCOUNTER 2023-11-27 08:34 | Outpatient (CLI) | payer OTHER, SELFPAY ==
--- OUTSIDE RECORDS SUMMARY | 2023-11-29 06:30 | XMS_ITS | Clinical Summary ---
Author Organization [facility] Address [address] [place] [address] Care Team Providers Care Agriculture Inspector Name Role Phone Elsewhere, Pcp Primary Care Provider Unavailabl e Source Comments Patient records contain information from all sites at [facility]. For routine questions regarding patient records, call [phone] during business hours, M-F 8:00 AM - 5:00 PM Central Time. Record requests for emergency care only can be directed to [phone] at any time.[facility] Medications Medication Sig Dispensed Refills Start Date [...] 10/15/2023 Clinical Communication Division of Rheumatology in [place], [place] [address] [place] [address] Arthur Castorena M.D., Ph.D. from Last 3 Months Immunizations Name Administration Dates Next Due PPSV23 05/02/2003 Social History Tobacco Use Types Packs/Day Years Used Date Smoking Tobacco: Every Day [facility] Utilities Answer Date Recorded In the past 12 months has th e [employer], [employer], oil, or water [employer] threatened to shut off services in your [...] your living situation today? I have a [facility] place to live 07/07/2023 Sex and [...] AM CDT Iwona Garza LAB BLOOD ADD-ON [facility] [address] [place] [address], [facility] [address] [place] [address] from Last 3 Months or Most Recently Relevant to Health Maintenance Care Teams Agriculture Inspector Relationship Specialty Start Date End Date Elsewhere, Pcp PCP - General 04/18/19
--- OUTSIDE RECORDS SUMMARY | 2023-11-29 06:30 | XMS_ITS ---
Author Organization [facility] Address [address] [place] [address] Care Team Providers Care Strike Warfare/Missile Systems Officer Name Role Phone Unavailable Unavailable Unavailable Surgery Details Not on file Complications Check Surgery Details section. Procedure Estimated Blood Loss Check Surgery Details section. Procedure Findings Check Surgery Details section. Procedure Specimens Taken Check Surgery Details section.
--- OUTSIDE RECORDS SUMMARY | 2023-11-29 06:30 | XMS_ITS | Encounter Summary ---
Author Organization [facility] Address [address] [place] [address] Care Team Providers Care Fbi Profiler Name Role Phone Elsewhere, Pcp Primary Care Provider Unavailabl e Encounter Details Date Type Department Care Team (Late st Contact Info) Description 10/15/2023 Clinical Communication Division of Rheumatology in [place], [place] [address] [place] [phone] Arthur Castorena M.D., Ph.D. [address] [place] [address] Social History Tobacco Use Types Packs/Day Years Used Date Smoking Tobacco: Every Day [facility] Utilities Answer Date Recorded In the past [...] your living situation today? I have a [facility] place to live 07/07/2023 Sex and Gender Information Value Date Recorded Sex Assigned at Female 07/07/2023 7:47 AM CDT Gender Identity Female 07/07/2023 7:47 AM CDT Sexual Orientation Straight 07/07/2023 7: 47 AM CDT documented as of this encounter Plan of Treatment Not on file documented as of this encounter Visit Diagnoses Not on filedocumented in this encounter Care Teams Fbi Profiler Relationship Specialty Start Date End Date Elsewhere, Pcp PCP - General 04/18/19 documented as of this encounter
--- OUTSIDE RECORDS SUMMARY | 2023-11-29 06:30 | XMS_ITS | Referral Summary ---
Author Organization [facility] Address [address] [place] [address] Care Team Providers Care Adjutant General Name Role Phone Elsewhere, Pcp Primary Care Provider Unavailabl e Source Comments Patient records contain information from all sites at [facility]. For routine questions regarding patient records, call [phone] during business hours, M-F 8:00 AM - 5:00 PM Central Time. Record requests for emergency care only can be directed to [phone] at any time.[facility] Encounters Date Type Department Care Team Description 10/15/2023 Clinical Communication Division of Rheumatology in [place], [place] [address] [place] [address] Arthur Castorena M.D., Ph.D. from Last 3 [...] Years Used Date Smoking Tobacco: Every Day [facility] Utilities Answer Date Recorded In the past 12 months has th e [employer], [employer], or water [employer] threatened to shut off services in your [...] your living situation today? I have a [facility] place to live 07/07/2023 Sex and Gender [...] AM CDT Iwona Garza LAB BLOOD ADD-ON [facility] [address] [place] [address], [facility] D[facility] [address] [place] [address] from Last 3 Months or Most Recently Relevant to Health Maintenance Care Teams Adjutant General Relationship Specialty Start Date End Date Elsewhere, Pcp PCP - General 04/18/19
== END 2023-11-27 08:35 | disposition home or self-care (01) ==
LOC: NFLDREF 11-29 06:28
PROVIDERS: PCP Family Medicine; Referring Provider Family Medicine; Visit Provider Family Medicine
DX: M35.3 Polymyalgia rheumatica (principal)
CPT/HCPCS: 86140

== ENCOUNTER 2023-12-22 07:20 | Outpatient (CLI) | payer OTHER, SELFPAY ==
--- OUTSIDE RECORDS SUMMARY | 2023-12-26 06:31 | XMS_ITS | Clinical Summary ---
Author Organization [facility] Address [address] [place] [address] Care Team Providers Care Periodontist Name Role Phone Elsewhere, Pcp Primary Care Provider Unavailabl e Source Comments Patient records contain information from all sites at [facility]. For routine questions regarding patient records, call [phone] during business hours, M-F 8:00 AM - 5:00 PM Central Time. Record requests for emergency care only can be directed to [phone] at any time.[facility] Medications Medication Sig Dispensed Refills Start [...] 10/15/2023 Clinical Communication Division of Rheumatology in [place], [place] [address] [place] [address] Arthur Castorena M.D., Ph.D. from Last 3 Months Immunizations Name Administration Dates Next Due PPSV23 05/02/2003 Social History Tobacco Use Types Packs/Day Years Used Date Smoking Tobacco: Every Day [facility] Utilities Answer Date Recorded In the past 12 months has th e [employer], [employer], oil, or water [employer] threatened to shut off services in your [...] 1948 Mammogram 1950 Tobacco Cessation counseling 1948 Depression Screening (Annual PHQ-2) 03/30/2023 Fall Risk Screen (Annual) 03/30/2023 COVID-19 Vaccine (2023-2 5 season) 2023 01/16/2023, 02/03/2022, 10/21/2021, Additional history exists Influenza Vaccine (#1) 2023 , 01/23/2022, 03/13/2021, Additional history exists Creatinine Level (Kidney Fun ction Test) 07/06/2024 07/07/2023 Potassium Level 07/06/2024 07/07/2023 Sodium Level 07/06/2024 07/07/2023 Fasting Glucose for Diabetes Screening 07/06/2026 07/07/2023 DTaP,Tdap,and Td Vaccines (3 - Td or Tdap) 03/15/2030 03/15/2020, 08/31/2009 Pneumococcal vaccine (65+ years) Completed 03/04/2017, 01/09/2015, 05/02/2003 Zoster Vaccines Completed 10/12/2019, 02/27, 03/10/2019, Additional history exists RSV vaccine - (32-3 6 weeks) or 60+ years Completed 12/29/2022 Procedures Procedure Name Priority Date/Time Associated Diagnosis [...] Iwona Garza LAB BLOOD ADD-ON [facility] [address] [place] [address], [facility] [address] [place] [address] from Last 3 Months or Most Recently Relevant to Health Maintenance Care Teams Periodontist Relationship Specialty Start Date End Date Elsewhere, Pcp PCP - General 04/18/19
--- OUTSIDE RECORDS SUMMARY | 2023-12-26 06:31 | XMS_ITS | Referral Summary ---
Author Organization [facility] Address [address] [place] [address] Care Team Providers Care Multimedia Educational Specialist Name Role Phone Elsewhere, Pcp Primary Care Provider Unavailabl e Source Comments Patient records contain information from all sites at [facility]. For routine questions regarding patient records, call [phone] during business hours, M-F 8:00 AM - 5:00 PM Central Time. Record requests for emergency care only can be directed to [phone] at any time.[facility] Encounters Date Type Department Care Team Description 10/15/2023 Clinical Communication Division of Rheumatology in [place], [place] [address] [place] [address] Arthur Castorena M.D., Ph.D. from Last 3 [...] Years Used Date Smoking Tobacco: Every Day [facility] Utilities Answer Date Recorded In the past 12 months has th e [employer], [employer], or water [employer] threatened to shut off services in your [...] your living situation today? I have a [facility] place to live 07/07/2023 Sex and [...] AM CDT Iwona Garza LAB BLOOD ADD-ON [facility] [address] [place] [address], [facility] DTL [facility] [address] [place] [address] from Last 3 Months or Most Recently Relevant to Health Maintenance Care Teams Multimedia Educational Specialist Relationship Specialty Start Date End Date Elsewhere, Pcp PCP - General 04/18/19
--- OUTSIDE RECORDS SUMMARY | 2023-12-26 06:31 | XMS_ITS ---
Author Organization [facility] Address [address] [place] [address] Care Team Providers Care Crop Roller Name Role Phone Unavailable Unavailable Unavailable Surgery Details Not on file Complications Check Surgery Details section. Procedure Estimated Blood Loss Check Surgery Details section. Procedure Findings Check Surgery Details section. Procedure Specimens Taken Check Surgery Details section.
--- OUTSIDE RECORDS SUMMARY | 2023-12-26 06:31 | XMS_ITS | Encounter Summary ---
Author Organization [facility] Address [address] [place] [address] Care Team Providers Care Economic Historian Name Role Phone Elsewhere, Pcp Primary Care Provider Unavailabl e Encounter Details Date Type Department Care Team (Late st Contact Info) Description 10/15/2023 Clinical Communication Division of Rheumatology in [place], [place] [address] [place] [phone] Arthur Castorena M.D., Ph.D. [address] [place] [address] Social History Tobacco Use Types Packs/Day Years Used Date Smoking Tobacco: Every Day [facility] Utilities Answer Date Recorded In [...] your living situation today? I have a [facility] place to live 07/07/2023 Sex and Gender Information Value Date Recorded Sex Assigned at Female 07/07/2023 7:47 AM CDT Gender Identity Female 07/07/2023 7:47 AM CDT Sexual Orientation Straight 07/07/2023 7: 47 AM CDT documented as of this encounter Plan of Treatment Not on file documented as of this encounter Visit Diagnoses Not on filedocumented in this encounter Care Teams Economic Historian Relationship Specialty Start Date End Date Elsewhere, Pcp PCP - General 04/18/19 documented as of this encounter
== END 2023-12-22 07:21 | disposition home or self-care (01) ==
LOC: NFLDREF 12-26 06:29
PROVIDERS: PCP Family Medicine; Referring Provider Family Medicine; Visit Provider Family Medicine
DX: M35.3 Polymyalgia rheumatica (principal)
CPT/HCPCS: 86140

== ENCOUNTER 2024-01-21 07:31 | Outpatient (CLI) | payer OTHER, SELFPAY ==
--- OUTSIDE RECORDS SUMMARY | 2024-01-22 11:57 | XMS_ITS ---
Author Organization [facility] Address [address] [place] [address] Care Team Providers Care Delivery Driver Assistant Name Role Phone Unavailable Unavailable Unavailable Surgery Details Not on file Complications Check Surgery Details section. Procedure Estimated Blood Loss Check Surgery Details section. Procedure Findings Check Surgery Details section. Procedure Specimens Taken Check Surgery Details section.
--- OUTSIDE RECORDS SUMMARY | 2024-01-22 11:57 | XMS_ITS | Encounter Summary ---
Author Organization [facility] Address [address] [place] [address] Care Team Providers Care Learning Support Assistant Name Role Phone Elsewhere, Pcp Primary Care Provider Unavailabl e Encounter Details Date Type Department Care Team (Late st Contact Info) Description 10/15/2023 Clinical Communication Division of Rheumatology in [place], [place] [address] [place] [phone] Arthur Castorena M.D., Ph.D. [address] [place] [address] Social History Tobacco Use Types Packs/Day Years Used Date Smoking Tobacco: Every Day [facility] Utilities Answer Date Recorded In the [...] living? No 07/07/2023 Nutrition Answer Date Recorded On average, how many serving s of [...] your living situation today? 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
--- OUTSIDE RECORDS SUMMARY | 2024-01-22 11:57 | XMS_ITS | Clinical Summary ---
Author Organization [facility] Address [address] [place] [address] Care Team Providers Care Speech Correction Consultant Name Role Phone Elsewhere, Pcp Primary Care Provider Unavailabl e Source Comments Patient records contain information from all sites at [facility]. For routine questions regarding patient records, call [phone] during business hours, M-F 8:00 AM - 5:00 PM Central Time. Record requests for emergency care only can be directed to [phone] at any time.[facility] Medications alendronate (FOSAMAX) 70 mg tablet Take 1 tablet by mouth once a week. 06/20/2016 Active hydroCHLOROthia zide (HYDRODIURIL) 25 mg tablet Take 1 tablet by mouth daily. 06/20/2016 Active lisinopriL (PRINIVIL,ZESTR IL) 30 mg tablet Take 1 tablet by mouth daily. 01/02/2011 Active simvastatin (ZOCOR) 10 mg tablet Take 2 tablets by mouth at bedtime. 06/20/2016 Active calcium carbonate-vitam in D3 (Calcium 600 with Vitamin D3) 600 mg-10 mcg (400 unit) tablet,chewable Chew 1 tablet daily. Active cholecalciferol , vitamin D3, (cholecalcifero l) 25 mcg (1,000 Unit) tablet Take 50 mcg by mouth daily. Active hydroxychloroqu ine (PLAQUENIL) 200 mg tablet Take 200 mg by mouth Titrated. Active predniSONE (DELTASONE) 1 mg tabletIndicatio ns:Polymyalgia Rheumatica (HCC) Take 9 tablets (9 mg [...] daily for 21 days. 945 tablet 07/15/2023 01/20/20 24 Active Problems No known active problems Immunizations Name Administration Dates Next Due PPSV23 05/02/2003 Social History Tobacco Use Types Packs/Day Years Used Date Smoking Tobacco: Every Day [facility] Utilities Answer Date Recorded In the past 12 months has th [employer], gas, oil, or water [employer] threatened to shut off services in your [...] money to buy more. Never true 07/07/19 Within the past 12 months, t he [...] your living situation today? 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 [address] [place] [address] from Last 3 Months or Most Recently Relevant to Health Maintenance Insurance [facility] Care Teams Speech Correction Consultant Relationship Specialty Start Date End Date Elsewhere, Pcp PCP - General 04/18/19
--- OUTSIDE RECORDS SUMMARY | 2024-01-22 11:57 | XMS_ITS | Referral Summary ---
Author Organization [facility] Address [address] [place] [address] Care Team Providers Care Switch Operators Supervisor Name Role Phone Elsewhere, Pcp Primary Care Provider Unavailabl e Source Comments Patient records contain information from all sites at [facility]. For routine questions regarding patient records, call [phone] during business hours, M-F 8:00 AM - 5:00 PM Central Time. Record requests for emergency care only can be directed to [phone] at any time.[facility] Medications alendronate (FOSAMAX) 70 mg tablet Take [...] Years Used Date Smoking Tobacco: Every Day [facility] Utilities Answer Date Recorded In the past 12 months has th [employer], gas, oil, or water [employer] threatened to shut off services in your [...] your living situation today? 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 [address] [place] [address] from Last 3 Months or Most Recently Relevant to Health Maintenance Insurance MEDICARE [facility] Care Teams Switch Operators Supervisor Relationship Specialty Start Date End Date Elsewhere, Pcp PCP - General 04/18/19
== END 2024-01-21 07:32 | disposition home or self-care (01) ==
LOC: NFLDREF 01-22 11:56
PROVIDERS: PCP Family Medicine; Referring Provider Family Medicine; Visit Provider Family Medicine
DX: M35.3 Polymyalgia rheumatica (principal)
CPT/HCPCS: 86140

== ENCOUNTER 2024-02-17 07:40 | Outpatient (CLI) | payer OTHER, SELFPAY ==
--- OUTSIDE RECORDS SUMMARY | 2024-02-20 12:23 | XMS_ITS | Encounter Summary ---
Author Organization [facility] Address [address] [place] [address] Care Team Providers Care Milker Machine Name Role Phone Elsewhere, Pcp Primary Care Provider Unavailabl e Encounter Details Date Type Department Care Team (Late st Contact Info) Description 10/15/2023 Clinical Communication Division of Rheumatology in [place], [place] [address] [place] [phone] Arthur Castorena M.D., Ph.D. 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
--- OUTSIDE RECORDS SUMMARY | 2024-02-20 12:23 | XMS_ITS | Clinical Summary ---
Author Organization [facility] Address [address] [place] [address] Care Team Providers Care Director Risk Name Role Phone Elsewhere, Pcp Primary Care Provider Unavailabl e Source Comments Patient records contain information from all sites at [facility]. For routine questions regarding patient records, call [phone] during business hours, M-F 8:00 AM - 5:00 PM Central Time. Record requests for emergency care only can be directed to [phone] at any time.[facility] Medications alendronate (FOSAMAX) 70 mg tablet Take [...] Take 200 mg by mouth Titrated. Active Active Problems No known active problems Immunizations Name Administration Dates Next Due PPSV23 05/02/2003 Social History Tobacco Use Types Packs/Day Years Used Date Smoking Tobacco: Every Day [facility] Utilities Answer Date Recorded In [...] your living situation today? 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 Gender Identity Female 07/07/2023 7:47 AM CDT Sexual Orientation Straight 07/07/2023 7: 47 AM CDT Last Filed Vital Signs Vital Sign Reading Time Taken Comments Blood Pressure 150/77 07/07/2023 8:29 AM CDT Pulse 59 07/07/2023 8:29 AM CDT Temperature 36.3 C (97.3 F) 07/07/2023 8:29 AM CDT Respiratory Rate - - Oxygen Saturation - - Inhaled Oxygen Concentration - - Weight 69.5 kg (153 lb 3.5 oz) 07/07/2023 8:29 A M CDT Height 168.5 cm (5' 6.34) 07/07/2023 8:29 AM CD T Body Mass Index 24.48 07/07/2023 8:29 AM CDT Plan of Treatment Health Maintenance Due Date Last Done Comments Bone Density Scan (Osteoporosis Screen) 1948 CT Colonography 1948 Cologuard 1948 Colonoscopy 1948 Colorectal Cancer Screening 1948 FIT 1948 Mammogram 1948 Tobacco Cessation counseling 1948 Depression Screening (Annual PHQ-2) 03/30/2023 Fall Risk Screen (Annual) 03/30/2023 COVID-19 Vaccine ( season) 2023 01/16/2023, 02/03/2022, 10/21/2021, Additional history exists Influenza Vaccine (#1) 2023 , 01/23/2022, 03/13/2021, Additional history exists Creatinine Level (Kidney Function Test) 07/06/2024 07/07/2023 Potassium Level 07/06/2024 07/07/2023 Sodium Level 07/06/2024 07/07/2023 Fasting Glucose for Diabetes Screening 07/06/2026 07/07/2023 DTaP,Tdap,and Td Vaccines (3 - Td or Tdap) 03/15/2030 03/15/2020, 08/31/2009 Pneumococcal vaccine (65+ years) Completed 03/04/2017, 01/09/2015, 05/02/2003 Zoster Vaccines Completed 10/12/2019, 02/27, 03/10/2019, Additional history exists RSV vaccine - (32-36 weeks) or 60+ years Completed 12/29/2022 IPV Vaccines Aged Out No longer eligi ble based on patient's age to complete this topic Procedures Procedure Name Priority Date/Time Associated Diagnosis [...] AM CDT Iwona Garza LAB BLOOD ADD-ON Final Res ult [facility] [address] [place] [address], [place] [facility] [address] [place] [address] from Last 3 Months or Most Recently Relevant to Health Maintenance Insurance MEDICARE [facility] Care Teams Director Risk Relationship Specialty Start Date End Date Elsewhere, Pcp PCP - General 04/18/19
--- OUTSIDE RECORDS SUMMARY | 2024-02-20 12:23 | XMS_ITS | Referral Summary ---
Author Organization [facility] Address [address] [place] [address] Care Team Providers Care Toddler Caregiver Name Role Phone Elsewhere, Pcp Primary Care Provider Unavailabl e Source Comments Patient records contain information from all sites at [facility]. For routine questions regarding patient records, call [phone] during business hours, M-F 8:00 AM - 5:00 PM Central Time. Record requests for emergency care only can be directed to [phone] at any time.[facility] Medications alendronate (FOSAMAX) 70 mg tablet Take [...] Years Used Date Smoking Tobacco: Every Day [facility] Utilities Answer Date Recorded In [...] your living situation today? 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 [address] [place] [address] from Last 3 Months or Most Recently Relevant to Health Maintenance Insurance MEDICARE [facility] Care Teams Toddler Caregiver Relationship Specialty Start Date End Date Elsewhere, Pcp PCP - General 04/18/19
--- OUTSIDE RECORDS SUMMARY | 2024-02-20 12:23 | XMS_ITS ---
Author Organization [facility] Address [address] [place] [address] Care Team Providers Care Sample Card Maker Name Role Phone Unavailable Unavailable Unavailable Surgery Details Not on file Complications Check Surgery Details section. Procedure Estimated Blood Loss Check Surgery Details section. Procedure Findings Check Surgery Details section. Procedure Specimens Taken Check Surgery Details section.
== END 2024-02-17 07:41 | disposition home or self-care (01) ==
LOC: NFLDREF 02-20 12:21
PROVIDERS: PCP Family Medicine; Referring Provider Family Medicine; Visit Provider Family Medicine
DX: M35.3 Polymyalgia rheumatica (principal)
CPT/HCPCS: 86140

== ENCOUNTER 2024-03-21 07:40 | Outpatient (CLI) | payer OTHER, SELFPAY | END 2024-03-21 07:41 | disposition home or self-care (01) | PROVIDERS: PCP Family Medicine; Referring Provider Family Medicine; Visit Provider Family Medicine | DX: M35.3 Polymyalgia rheumatica (principal); E78.5 Hyperlipidemia, unspecified; R73.01 Impaired fasting glucose; I10 Essential (primary) hypertension; M81.0 Age-related osteoporosis without current pathological fracture | CPT/HCPCS: 80053; 80061; 82306; 86140 ==

== ENCOUNTER 2024-05-09 08:05 | Outpatient (CLI) | payer OTHER, SELFPAY | END 2024-05-09 08:06 | disposition home or self-care (01) | LOC: NFLDREF 05-13 02:51 | PROVIDERS: PCP Family Medicine; Referring Provider Family Medicine; Visit Provider Family Medicine | DX: M81.0 Age-related osteoporosis without current pathological fracture (principal); M35.3 Polymyalgia rheumatica; I10 Essential (primary) hypertension; E55.9 Vitamin D deficiency, unspecified; M85.88 Other specified disorders of bone density and structure, other site; E78.5 Hyperlipidemia, unspecified | CPT/HCPCS: 80053; 80061; 82306; 86140 ==

== ENCOUNTER 2024-05-11 08:00 | Outpatient (CLI) | payer OTHER, SELFPAY ==
[2024-05-13 02:59] LABS: HPV Source Cervical/Vag; HPV, High Risk by TMA Not Detected
[2024-05-23 14:46] LABS: Pap Test Reviewed by Path Done
== END 2024-05-11 08:01 | disposition home or self-care (01) ==
PROVIDERS: PCP Family Medicine; Visit Provider Family Medicine
DX: Z12.4 Encounter for screening for malignant neoplasm of cervix (principal); Z11.51 Encounter for screening for human papillomavirus (HPV)
CPT/HCPCS: 87624; 87625; 88141; 88142

== ENCOUNTER 2024-05-30 07:44 | Outpatient (CLI) | payer OTHER, SELFPAY | END 2024-05-30 07:45 | disposition home or self-care (01) | PROVIDERS: PCP Family Medicine; Visit Provider Family Medicine | DX: Z12.2 Encounter for screening for malignant neoplasm of respiratory organs (principal); Z72.0 Tobacco use; I35.0 Nonrheumatic aortic (valve) stenosis; I51.7 Cardiomegaly; I34.0 Nonrheumatic mitral (valve) insufficiency | CPT/HCPCS: 71271; 93306 ==

== ENCOUNTER 2024-07-04 07:41 | Outpatient (CLI) | payer OTHER, SELFPAY | END 2024-07-04 07:42 | disposition home or self-care (01) | LOC: NFLDREF 07-07 20:37 | PROVIDERS: PCP Family Medicine; Referring Provider Family Medicine; Visit Provider Family Medicine | DX: M35.3 Polymyalgia rheumatica (principal) | CPT/HCPCS: 86140 ==

== ENCOUNTER 2024-08-29 14:24 | Outpatient (CLI) | payer OTHER, SELFPAY ==
--- NOTE | 2024-08-29 14:40 | CRLHL7_ITS ---
For Patients: As a result of the Century Cures Act, medical imaging exams and procedure reports are released immediately into your electronic medical record. You may view this report before your referring provider. If you have questions, please contact your health care provider. INDICATION: BILATERAL SCREENING MAMMOGRAM, ASYMPTOMATIC 74 Y/O FEMALE COMPARISON: 07/21/2023, 07/09/2022, 05/02/2021 TECHNIQUE: Digital mammogram in CC and MLO projections including computer-aided detection (CAD) and tomosynthesis. BREAST COMPOSITION: The breasts are almost entirely fatty. FINDINGS: No suspicious findings. ASSESSMENT: BI-RADS 2 Benign RECOMMENDATION: Annual screening mammogram. A lay language report of this examination will be provided to the patient. Dictated by: Víctor Reina MD @ 09/06/2024 12:19:00 (Electronically Signed)
== END 2024-08-29 14:25 | disposition home or self-care (01) ==
LOC: MAMMO 14:25
PROVIDERS: PCP Family Medicine; Visit Provider Family Medicine
DX: Z12.31 Encounter for screening mammogram for malignant neoplasm of breast (principal)
CPT/HCPCS: 77063; 77067

== ENCOUNTER 2024-09-07 07:29 | Outpatient (CLI) | payer OTHER, SELFPAY | END 2024-09-07 07:30 | disposition home or self-care (01) | LOC: NFLDREF 09-08 19:31 | PROVIDERS: PCP Family Medicine; Referring Provider Family Medicine; Visit Provider Family Medicine | DX: M35.3 Polymyalgia rheumatica (principal) | CPT/HCPCS: 86140 ==

== ENCOUNTER 2024-11-08 07:33 | Outpatient (CLI) | payer OTHER, SELFPAY | END 2024-11-08 07:34 | disposition home or self-care (01) | LOC: NFLDREF 11-11 18:00 | PROVIDERS: PCP Family Medicine; Referring Provider Family Medicine; Visit Provider Family Medicine | DX: M35.3 Polymyalgia rheumatica (principal) | CPT/HCPCS: 86140 ==

== ENCOUNTER 2024-11-17 09:50 | Outpatient (CLI) | payer OTHER, SELFPAY | END 2024-11-17 09:51 | disposition home or self-care (01) | LOC: AMB 11-21 10:08 | PROVIDERS: Visit Provider Family Medicine | DX: S09.90XA Unspecified injury of head, initial encounter (principal); S29.9XXA Unspecified injury of thorax, initial encounter; W01.0XXA Fall on same level from slipping, tripping and stumbling without subsequent striking against object, initial encounter; Y92.59 Other trade areas as the place of occurrence of the external cause | CPT/HCPCS: A0425; A0433 ==

== ENCOUNTER 2024-11-17 10:18 | Emergency (ER) | payer OTHER, SELFPAY ==
--- OUTSIDE RECORDS SUMMARY | 2024-11-17 10:20 | XMS_ITS | Clinical Summary ---
Author Organization [facility] Address [address] [place] [address] Care Team Providers Care Secondary History Teacher Name Role Phone Elsewhere, Pcp Primary Care Provider Unavailabl e Source Comments Patient records contain information from all sites at [facility]. For routine questions regarding patient records, call [phone] during business hours, M-F 8:00 AM - 5:00 PM Central Time. Record requests for emergency care only can be directed to [phone] at any time.[facility] Medications alendronate (FOSAMAX) 70 mg tablet Take [...] Active Problems No known active problems Immunizations Immunization Administration Dates Next Due PPSV23 05/02/2003 Social History Tobacco Use Types Packs/Day Years Used Date Smoking Tobacco: Every Day [facility] Utilities Answer Date Recorded In the past 12 months has th e electric, gas, oil, or water company threatened to shut off services in your home? No 07/07/2023 Hunger Vital Sign Answer Date Recorded [...] things needed for daily living? No 07/07/2023 Housing Stability Answer Date Recorded What is your living situation today? 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 Gender Identity Female 07/07/2023 7:47 AM CDT [...] Health Maintenance Due Date Last Done Comments Tobacco Cessation counseling 1950 COVID-19 Vaccine ( season) 2023 01/16/2023, 02/03/2022, 10/21/2021, Additional history exists Depression Screening (Annual PHQ-2) 03/30/2024 Fall Risk Screen (Annual) 03/30/2024 Creatinine Level (Kidney Function Test) 07/06/2024 07/07/2023 Potassium Level 07/06/2024 07/07/2023 Sodium Level 07/06/2024 07/07/2023 Influenza Vaccine (#1) 2024 3, 01/23/2022, 03/13/2021, Additional history exists DTaP,Tdap,and Td Vaccines (3 - Td or Tdap) 03/15/2030 03/15/2020, 08/31/2009 Pneumococcal vaccine (50+ years) Completed 03/04/2017, 01/09/2015, 05/02/2003 Zoster Vaccines Completed 10/12/2019, 02/27, 03/10/2019, Additional history exists RSV vaccine - (32-36 weeks) or 60+ years Completed 12/29/2022 Hepatitis B Screening Discontinued 07/07/2023 IPV Vaccines Aged Out No longer eligi ble based on patient's age to complete this topic Procedures Procedure Name Priority Date/Time Associated Diagnosis Comments HEPATITIS B SURFACE ANTIGEN Routine 07/07/2023 11:22 AM CDT Myalgia COMPREHENSIVE METABOLIC PANEL, S/P Routine 07/07/2023 11:22 AM CDT Polymyalgia Rheumatica (HCC) from Last 3 Months or Most Recently Relevant to Health Maintenance Results * Hepatitis B Surface Antigen (07/07/2023 11:22 AM CDT) HBs Antigen, S Negative Negative 07/07/2023 9:02 PM CDT [facility] Blood (Blood, Venous) 07/07/2023 11:22 AM CDT 07/07/2023 5:00 PM CDT us Arthur Castorena M.D., Ph.D. LAB MICROBIOLOGY - BLOO D ORDERABLES Final Result [facility] [address] [address] [facility] [address] [place] [address] * (ABNORMAL) Comprehensive Metabolic Panel (07/07/2023 11:22 [...] Garza LAB BLOOD ADD-ON Final Res ult [facility] [address] [place] [address], [place] DTL [facility] [address] [place] [address] from Last 3 Months or Most Recently Relevant to Health Maintenance Insurance MEDICARE [facility] Care Teams Secondary History Teacher Relationship Specialty Start Date End Date Elsewhere, Pcp PCP - General 04/18/19
[2024-11-17 10:22] VITALS: BP 145/74; PULSE 68; RESP 18; TEMP 36.9; O2SAT 98; BMI 24.0
--- NOTE | 2024-11-17 10:51 | ED.GENADULT ---
HPI - General Adult General Chief complaint: Fall/Minor Trauma Stated complaint: fall Time Seen by Provider: 11/17/24 10:50 History of Present Illness HPI narrative: Patient presents to the emergency department via EMS after a fall. Patient states she slipped at work and fell to her back. Patient did hit her head on the cement. No loss of conciousness. Remembers the fall. Not on blood thinners. Does have a laceration to the back right side of her head. Bleeding controlled at this time. Also endorses low back pain. 74-year-old woman presenting to emergency department following a fall. Apparently slipped at work falling to her back on the concrete. She did strike her head. She did not lose consciousness. She does have some low back pain but denies neck pain. No difficulty breathing. Is noted to have sustained a laceration to her scalp. No injury to the extremities. No abdominal pain. No chest pain. This was a slip and fall event she clarifies. Was not feeling any chest pain or palpitations or lightheadedness prior to this event. Related Data Home Medications ?Medication ?Instructions ?Recorded ?Confirmed cholecalciferol (vitamin D3) 50 2,000 unit PO DAILY 11/05/21 11/17/24 mcg (2,000 unit) capsule Previous Rx's ?Medication ?Instructions ?Recorded hydrochlorothiazide 25 mg tablet 25 mg PO DAILY #90 tabs 05/11/24 lisinopril 30 mg tablet 30 mg PO DAILY #90 tabs 05/11/24 simvastatin 20 mg tablet 20 mg PO .Bedtime #90 tabs 05/11/24 prednisone 1 mg tablet 2 mg (2 x 1 mg) PO QDAY #120 tabs 11/11/24 Allergies Allergy/AdvReac Type Severity Reaction Status Date / Time penicillin V Allergy Intermediate itching, Verified 11/17/24 10:27 edema Review of Systems Status of ROS: Reports: 6 or more systems reviewed and unremarkable except as noted in History and below [facility] Medical History Muscle pain (06/2023) ?M79.10 - Myalgia, unspecified site (ICD-10) Dermatomyositis (06/2023) ?M33.13 - Other dermatomyositis without myopathy (ICD-10) Alcohol use ?Z78.9 - Other specified health status (ICD-10) Basal cell carcinoma of face (12/2000) ?C44.310 - Basal cell carcinoma of skin of unspecified parts of face (ICD-10) Dyslipidemia ?E78.5 - Hyperlipidemia, unspecified (ICD-10) Moderate anxiety ?F41.9 - Anxiety disorder, unspecified (ICD-10) Osteopenia (09/11/10) ?M85.80 - Other specified disorders of bone density and structure, unspecified site (ICD-10) Vitamin D deficiency ?E55.9 - Vitamin D deficiency, unspecified (ICD-10) ASCUS with positive high risk HPV (04/2023) Tobacco abuse ?Z72.0 - Tobacco use (ICD-10) Steroid long-term use On prednisone therapy (03/2023) ?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 (ICD-10) Leg edema (08/2023) ?R60.0 - Localized edema (ICD-10) Non-compliance ?Z91.199 - Patient's noncompliance with other medical treatment and regimen due to unspecified reason (ICD-10) 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) Polymyalgia rheumatica (04/07/23) ?M35.3 - Polymyalgia rheumatica (ICD-10) Squamous cell carcinoma of right lower leg (04/2016) ?C44.722 - Squamous cell carcinoma of skin of right lower limb, including hip (ICD-10) Moderate aortic valve stenosis (2019) ?I35.0 - Nonrheumatic aortic (valve) stenosis (ICD-10) Hypertension (09/11/10) ?I10 - Essential (primary) hypertension (ICD-10) History of colonic polyps (2014) ?Z86.010 - Personal history of colonic polyps (ICD-10) History of cervical dysplasia ?Z87.410 - Personal history of cervical dysplasia (ICD-10) Dysphagia ?R13.10 - Dysphagia, unspecified (ICD-10) Discoid lupus erythematosus (09/11/10) ?L93.0 - Discoid lupus erythematosus (ICD-10) Chronic obstructive pulmonary disease (09/11/10) ?J44.9 - Chronic obstructive pulmonary disease, unspecified (ICD-10) Surgical History History of Mohs micrographic surgery for skin cancer (05/2016) ?Z85.828 - Personal history of other malignant neoplasm of skin (ICD-10) ?Z98.890 - Other specified postprocedural states (ICD-10) Hx of colposcopy with cervical biopsy (06/26/23) ?Z98.890 - Other specified postprocedural states (ICD-10) H/O cervical biopsy (03/2021) ?Z98.890 - Other specified postprocedural states (ICD-10) Hx of appendectomy (05/2020) ?Z90.49 - Acquired absence of other specified parts of digestive tract (ICD-10) Normal colonoscopy (2014) History of loop electrical excision procedure (LEEP) (01/01/05) ?Z98.890 - Other specified postprocedural states (ICD-10) History of cervical biopsy (2013) ?Z98.890 - Other specified postprocedural states (ICD-10) History of basal cell carcinoma excision (2000) ?Z98.890 - Other specified postprocedural states (ICD-10) ?Z85.828 - Personal history of other malignant neoplasm of skin (ICD-10) Family History Mother High blood pressure Stroke Macular degeneration Father Lung cancer Melanoma Stroke High blood pressure Brother Seizure Grandmother Breast cancer, Onset Age: 60 Social History Narrative: , 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, 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 Does not exercise regularly Alcohol use: 14 beers a week tobacco abuse- 40 pack years What is your current living situation?: I presently have a place to live Problems where you live: no known problems In the past 12 months, utilities in danger of being shut off: no In past 12 months, lack of transportation kept you from medical appts, meetings, work, or getting things needed for daily living: no In the past 12 mos, have been you worried that your food would run out before you had money to buy more?: never true In the past 12 mos, the food you bought just didn't last and you didn't have money to buy more?: never true Smoking Status: Current every day smoker How often does anyone, including family, friends and others, physically hurt you: never How often does anyone, including family, friends and others, insult or talk down to you: decline to answer How often does anyone, including family, friends and others, threaten you with harm: never How often does anyone, including family, friends and others, scream or curse at you: sometimes Health Related Social Needs: Other personal risk factors, not elsewhere classified (Z91.89) Exam Narrative: Exam Narrative: Pleasant. NAD. Good energy. Breathing easily. At the upper right posterior parietal scalp there is a 7/8 in oozing laceration. I do not feel crepitus or step-offs here. Cranial nerves 2-12 are intact. No fluid at external ear canals. Pupils are 3 mm and brisk and equal. She is moving all extremities without difficulty. Stands briskly without difficulty although notes some low back pain. She is unable to bend forward to touch her toes but she says that that is always the case. She does have soreness to palpation of the low mid lumbar spine. Lungs are clear. Heart in regular rate and rhythm. Const: Vital Signs, click to edit/add: Vital Signs - 24 hr 11/17/24 10:22 Temperature 98.4 F Pulse Rate [Right Pulse Oximeter] 68 Respiratory Rate 18 Blood Pressure [Ri ght Upper Arm] 145/74 H Pulse Oximetry 98 Oxygen Delivery Me thod Room Air Documenting provider has reviewed patient's vital signs: yes Course Vital Signs Vital signs: Initial Vital Signs Temperature 98.4 F 11/17/24 10:22 Temperature Source Temporal Artery Scan 11/17/24 10:22 Pulse Rate 68 11/17/24 10:22 Pulse Rhythm Regular 11/17/24 10:22 Pulse Strength 3+ Normal 11/17/24 10:22 Respiratory Rate 18 11/17/24 10:22 Blood Pressure 145/74 H 11/17/24 10:22 Blood Pressure Mean 97 11/17/24 10:22 Blood Pressure Position Sitting 11/17/24 10:22 Pulse Oximetry 98 11/17/24 10:22 Oxygen Delivery Method Room Air 11/17/24 10:22 Vital Signs Temperature 98.4 F 11/17/24 10:22 Pulse Rate 68 11/17/24 10:22 Respiratory Rate 18 11/17/24 10:22 Blood Pressure 145/74 H 11/17/24 10:22 Pulse Oximetry 98 11/17/24 10:22 Oxygen Delivery Method Room Air 11/17/24 10:22 Temperature 98.4 F 11/17/24 10:22 Pulse Rate 63 11/17/24 12:00 Respiratory Rate 18 11/17/24 10:22 Blood Pressure 135/81 11/17/24 11:53 Pulse Oximetry 98 11/17/24 12:00 Oxygen Delivery Method Room Air 11/17/24 10:22 Medical Decision Making MDM Narrative Medical decision making narrative: Does not feel like she needs anything for pain or nausea at this time. She is quite cognitively clear. I would given mechanism, scan her head and major complaint really peers to be pain in her low back. No red flag symptoms but would CT image her lumbar spine as well for possible compression fracture or maybe process injury. I do independently review results of CT imaging of head and lumbar spine. Do not appreciate any acute intra cranial abnormality nor fracture in the lumbar spine. It appears that she does have degenerative disease; perhaps not unexpected. TECHNIQUE: CT head without contrast. COMPARISON: None. FINDINGS: MASS EFFECT AND VENTRICLES: No significant midline shift. The lateral ventricles are symmetric. Basal cisterns patent. No sulcal effacement. The ventricles, cisterns, and other CSF containing spaces are symmetrically prominent secondary to diffuse parenchymal volume loss but are otherwise normal as to shape and position. Cavum septum pellucidum. BRAIN: Diffuse cerebral volume loss. Periventricular and subcortical hypodensities likely secondary to age-related microvascular ischemic changes. No acute infarct or hemorrhage. VASCULAR: No acute abnormalities of the cavernous carotids and vertebral vessels on noncontrast exam. EXTRA-AXIAL: Extra-axial spaces are normal. EXTRA-CRANIAL: Mild soft tissue swelling along the right parietal scalp. No acute calvarial fractures. Sinuses and mastoids are clear. Right kasey bullosa is opacified. Orbits are normal. IMPRESSION: No acute intracranial abnormality. Mild soft tissue swelling along the right parietal scalp without underlying fracture. Please note that all CT scans at this facility use dose modulation, iterative reconstruction, and/or weight-based dosing when appropriate to reduce radiation dose to as low as reasonably achievable. Dictated by Marilyn Rivas MD @ 11/17/2024 12:04:30 PM TECHNIQUE: CT lumbar spine without contrast. COMPARISON: None. FINDINGS: No fracture. The intervertebral body heights are grossly preserved. Multilevel degenerative changes including intervertebral disc height loss at the L5-S1 level. Multilevel facet arthropathy. Extraspinal findings: Partially visualized right renal cyst. Abdominal aortic atherosclerosis. IMPRESSION: No acute fracture. Please note that all CT scans at this facility use dose modulation, iterative reconstruction, and/or weight-based dosing when appropriate to reduce radiation dose to as low as reasonably achievable. Dictated by Jasen Littlejohn MD @ 11/17/2024 12:16:48 PM Monitored on oximetry during time in the emergency department without event. I did return to finish cleaning and repairing the scalp wound. This does need repair. We discussed options. Ultimately closed with jordan without difficulty. Tolerated quite well. Very good wound approximation and control of bleeding. Easily ambulatory from the ER. See patient discharge plan for further discussion Follow-up in 7-10 days to have the jordan removed. Okay to get wet but try to avoid soaking while jordan are in. See handout for some ideas for stretching your low back. Consider icing areas that hurt 2-3 times daily over the next few days. Medical Records Medical records reviewed: Yes I reviewed the patient's medical records Discharge Plan Discharge Clinical Impression: Closed head injury, Low back pain, Laceration of scalp Patient Disposition: Home w/ Parent or Adult Condition: Improved Additional Instructions: Follow-up in 7-10 days to have the jordan removed. Okay to get wet but try to avoid soaking while jordan are in. See handout for some ideas for stretching your low back. Consider icing areas that hurt 2-3 times daily over the next few days. Prescriptions: No Action cholecalciferol (vitamin D3) 50 mcg (2,000 unit) capsule 2,000 unit PO DAILY lisinopril 30 mg tablet 30 mg PO DAILY Qty: 90 3RF hydrochlorothiazide 25 mg tablet 25 mg PO DAILY Qty: 90 3RF simvastatin 20 mg tablet 20 mg PO .Bedtime Qty: 90 3RF prednisone 1 mg tablet 2 mg PO QDAY Qty: 120 0RF Follow Up/Referrals: Laura Jiménez MD [Primary Care Provider, Family Practice] Stand Alone Forms: [employer] Info Instructions
--- NOTE | 2024-11-17 10:57 | CRLHL7_ITS ---
For Patients: As a result of the Cures Act, medical imaging exams and procedure reports are released immediately into your electronic medical record. You may view this report before your referring provider. If you have questions, please contact your health care provider. INDICATION: Fall TECHNIQUE: CT head without contrast. COMPARISON: None. FINDINGS: MASS EFFECT AND VENTRICLES: No significant midline shift. The lateral ventricles are symmetric. Basal cisterns patent. No sulcal effacement. The ventricles, cisterns, and other CSF containing spaces are symmetrically prominent secondary to diffuse parenchymal volume loss but are otherwise normal as to shape and position. Cavum septum pellucidum. BRAIN: Diffuse cerebral volume loss. Periventricular and subcortical hypodensities likely secondary to age-related microvascular ischemic changes. No acute infarct or hemorrhage. VASCULAR: No acute abnormalities of the cavernous carotids and vertebral vessels on noncontrast exam. EXTRA-AXIAL: Extra-axial spaces are normal. EXTRA-CRANIAL: Mild soft tissue swelling along the right parietal scalp. No acute calvarial fractures. Sinuses and mastoids are clear. Right kasey bullosa is opacified. Orbits are normal. IMPRESSION: No acute intracranial abnormality. Mild soft tissue swelling along the right parietal scalp without underlying fracture. Please note that all CT scans at this facility use dose modulation, iterative reconstruction, and/or weight-based dosing when appropriate to reduce radiation dose to as low as reasonably achievable. Dictated by Marilyn Rivas MD @ 11/17/2024 12:04:30 PM (Electronically Signed)
--- NOTE | 2024-11-17 10:57 | CRLHL7_ITS ---
For Patients: As a result of the Century Cures Act, medical imaging exams and procedure reports are released immediately into your electronic medical record. You may view this report before your referring provider. If you have questions, please contact your health care provider. INDICATION: Fall with low back pain. TECHNIQUE: CT lumbar spine without contrast. COMPARISON: None. FINDINGS: No fracture. The intervertebral body heights are grossly preserved. Multilevel degenerative changes including intervertebral disc height loss at the L5-S1 level. Multilevel facet arthropathy. Extraspinal findings: Partially visualized right renal cyst. Abdominal aortic atherosclerosis. IMPRESSION: No acute fracture. Please note that all CT scans at this facility use dose modulation, iterative reconstruction, and/or weight-based dosing when appropriate to reduce radiation dose to as low as reasonably achievable. Dictated by Jasen Littlejohn MD @ 11/17/2024 12:16:48 PM (Electronically Signed)
[2024-11-17 11:52] VITALS: PULSE 61; O2SAT 98
[2024-11-17 11:53] VITALS: BP 135/81; PULSE 62; O2SAT 99
[2024-11-17 12:00] VITALS: PULSE 63; O2SAT 98
== END 2024-11-17 13:13 | disposition home or self-care (01) ==
PROVIDERS: Emergency Provider Family Medicine; PCP Family Medicine
DX: S01.01XA Laceration without foreign body of scalp, initial encounter (principal); M54.50 Low back pain, unspecified; W01.10XA Fall on same level from slipping, tripping and stumbling with subsequent striking against unspecified object, initial encounter; Y99.0 Civilian activity done for income or pay
CPT/HCPCS: 12001; 70450; 72131; 99283; 99284

== ENCOUNTER 2025-01-17 07:35 | Outpatient (CLI) | payer OTHER, SELFPAY | END 2025-01-17 07:36 | disposition home or self-care (01) | LOC: NFLDREF 01-20 09:28 | PROVIDERS: PCP Family Medicine; Referring Provider Family Medicine; Visit Provider Family Medicine | DX: M35.3 Polymyalgia rheumatica (principal) | CPT/HCPCS: 86140 ==

== ENCOUNTER 2025-02-20 07:34 | Outpatient (CLI) | payer OTHER, SELFPAY | END 2025-02-20 07:35 | disposition home or self-care (01) | LOC: NFLDREF 02-24 10:35 | PROVIDERS: PCP Family Medicine; Referring Provider Family Medicine; Visit Provider Family Medicine | DX: M35.3 Polymyalgia rheumatica (principal) | CPT/HCPCS: 86140 ==

== ENCOUNTER 2025-03-20 07:43 | Outpatient (CLI) | payer OTHER, SELFPAY | END 2025-03-20 07:44 | disposition home or self-care (01) | LOC: NFLDREF 03-24 12:13 | PROVIDERS: PCP Family Medicine; Referring Provider Family Medicine; Visit Provider Family Medicine | DX: M35.3 Polymyalgia rheumatica (principal) | CPT/HCPCS: 86140 ==